=== PATIENT | female | born 1945 | race Caucasian/White ===

== ENCOUNTER 2023-08-15 15:23 | Outpatient (RCR) | payer MEDICARE, OTHER, SELFPAY | END 2023-09-18 15:48 | disposition home or self-care (01) | LOC: OT 15:23 | PROVIDERS: PCP Internal Medicine; Visit Provider Internal Medicine | DX: I89.0 Lymphedema, not elsewhere classified (principal) | CPT/HCPCS: 97140; 97166; 97535 ==

== ENCOUNTER 2025-06-03 07:56 | Outpatient (OUT) | payer MEDICARE, OTHER, SELFPAY ==
--- OUTSIDE RECORDS SUMMARY | 2025-02-27 18:07 | XMS_ITS ---
Author Organization [facility] in [place] Address [address] [place] [address] Care Team Providers Care Evaporative Cooler Installer Name Role Phone Riley Wallace DO Primary Care Provider Marcos Madsen [phone] Medications Medication SIG (Take, Route, Fr equency, Duration) Notes Start Date End Date Status oxyCODONE HCl 10 MG 1 tablet Orally tid for 30 days 02/27/2025 Active Encounters Encounter Location Date Provider Diagnosis [address] [address] 02/27/2025 Marcos Jeffers Plan Of Treatment Medication Medication Name Sig Start Date Stop Date Notes oxyCODONE HCl 10 MG 1 tablet Orally tid for 30 days 2024 Progress Notes * Alysia PÉREZ LDOB: 4 (79 yo F)Acc No.[id number]:02/27/2025 Patient: Alysia TREVINO :1945 A ge:79 Y S ex:Female Address:[address] [place] [address], [address] * Refills Start oxyCODONE HCl Tablet, 10 MG, Orally, 90 Tablet, 1 tablet, tid, 30 days, Refills=0 * true * Date: Generated for Loan florez/Alla/eTransmitting on: 0 06/03/2025 07:59 AM EDT
--- OUTSIDE RECORDS SUMMARY | 2025-03-17 04:00 | XMS_ITS ---
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 Medications Medication SIG (Take, Route, Frequency, Duration) Notes Start Date End Date Status Albuterol Sulfate HFA 108 (90 Base) MCG/ACT INHALE 2 PUFFS INTO THE LUNGS EVERY 4 HOURS NEEDED FOR 17 DAYS Inhalation for 25 Days Active oxyCODONE HCl 10 MG 1 tablet Orally tid for 30 days 02/27/2025 Active amLODIPine Besylate 10 MG Oral for 30 Days Active rOPINIRole HCl 0.5 MG Oral for 30 Days Active Sertraline HCl 100 MG Oral for 30 Days Active Ipratropium-Albuterol 0.5-2.5 (3) MG/3ML INHALE 1 VIAL VIA NEBULIZER 4 TIMES A DAY Inhalation for 8 Days Active metFORMIN HCl 1000 MG Oral for 30 Days Active Montelukast Sodium 10 MG Oral for 30 Days Active Gabapentin 400 MG TAKE 1 CAPSULE BY [facility] TWICE A DAY Oral for 30 Days Active Omeprazole 20 MG Oral for 30 Days Active busPIRone HCl 10 MG Oral for 30 Days Active Diclofenac Sodium 75 MG Oral for 30 Days Active Fluticasone Propionate 50 MCG/ACT Nasal for 90 Days Active Atorvastatin Calcium 10 MG TAKE 1 TABLET BY MOUTH EVERY DAY Oral for 90 Days Active Social History Tobacco Use: Social History Observation Description Date Details (start date - stop date) Former Smoker NA - NA Tobacco Control (Standard) Question Answer Notes Tobacco use: Former smoker How long has it been since y ou last smoked? Greater than 10 years Additional Findings: Tobacco non-user Ex -moderate cigarette smoker (10-19/day) Problems Problem Type SNOMED Code ICD Code Onset Dates Problem Status W/U Status Risk Notes Problem COPD - Chronic obstructive pulmonary disease (29084505) COPD (chronic obstructive pulmonary disease) (J44.9) Active confirmed Problem Obstructive sleep apnea syndrome (42819722) CYNTHIA (obstructive sleep apnea) (G47.33) Active confirmed Problem Restless legs (34385112) RLS (restless legs syndrome) (G25.81) Active confirmed Problem Diabetes mellitus type 2 (disorder) (84704628) DM2 (diabetes mellitus, type 2) (E11.9) Active confirmed Problem Atherosclerotic heart disease of [place] coronary artery without angina pectoris (252755745699085) Coronary artery calcification seen on CT scan (I25.10) Active confirmed Problem Muscle weakness (82399713) Generalized muscle weakness (M62.81) Active confirmed Problem Lung field abnormal (581491636) Abnormal CT scan of lung (R91.8) Active confirmed Problem Chronic respiratory failure (45997172) Chronic respiratory failure with hypoxia (J96.11) Active confirmed Problem Morbid obesity (765707690) Morbid obesity (E66.01) Active confirmed Problem Ex-tobacco user (finding) (188237155) History of tobacco abuse (Z87.891) Active confirmed Vital Signs Weight 231.0 lbs 03/17/2025 Height 63.0 in 03/17/2025 BMI 40.92 kg/m2 03/17/2025 Encounters Encounter Location Date Provider Diagnosis Pulmonary Medicine [address] [address] 03/17/2025 Chad Lyle COPD (chronic obstructive pulmonary disease) J44.9 ; Chronic respiratory failure with hypoxia J96.11 ; Abnormal CT scan of lung R91.8 ; CYNTHIA (obstructive sleep apnea) G47.33 ; Coronary artery calcification seen on CT scan I25.10 ; Generalized muscle weakness M62.81 ; RLS (restless legs syndrome) G25.81 ; Morbid obesity E66.01 ; armhole sewer (current) use of inhaled steroids Z79.51 and History of tobacco abuse Z87.891 Assessments Encounter Date Diagnosis (ICD Code) Assessment Notes Treatment Notes Treatment Clinical Notes Section Notes 03/17/2025 COPD (chronic obstructive pulmonary disease) (ICD-10 - J44.9) 03/17/2025 Chronic respiratory failure with hypoxia (ICD-10 - J96.11) 03/17/[address] scan of lung (ICD-10 - R91.8) 03/17/2025 CYNTHIA (obstructive sleep apnea) (ICD-10 - G47.33) 03/17/2025 Coronary artery calcification seen on CT scan (ICD-10 - I25.10) 03/17/2025 Generalized muscle weakness (ICD-10 - M62.81) 03/17/2025 RLS (restless legs syndrome) (ICD-10 - G25.81) 03/17/2025 Morbid obesity (ICD-10 - E66.01) 03/17/2025 MCC (current) use of inhaled steroids (ICD-10 - Z79.51) 03/17/2025 History of tobacco abuse (ICD-10 - Z87.891) Plan Of Treatment No Information Procedure Notes * Category Sub-Category Detail Notes PFT Data: 07/19/2023 - [facility] [place] -FEV1/FVC: 74%-FEV1: 81%-FVC: 75%-EEN61-12%: 51%-Bronchodilator response: None-RV: 197%-T%-DLCO: 58% Progress Notes * ANA MARIA Alysia LDOB: 4 (79 yo F)Acc No.[id number]:03/17/2025 UNLOCKED PROGRESS NOTE New Patient Patient: Alysia TREVINO Provider: Miroslava Lyle DO :1945 A ge:79 Y S ex:Female Date:03/17/2025 Address:[address] [place], [place] [phone] Pcp:Riley Wallace DO Subjective: * Chief Complaints: * 1 . 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 * ROS: G eneral/Constitutional: Fever or sweats d enies. C hange of appetite d enies. C hills d enies. W eight Change d enies. H EENT: Dry mouth d enies. S ore throat d enies. O ral Ulcers d enies. P ost Nasal Drip D enies. C ongestion D enies. H oarseness?Denies. C ardiovascular: Tachycardia d enies. E jolie D enies. C hest pain d enies. P alpitations d enies. R espiratory: Chest tightness d enies. P leurisy D enies. D yspnea d enies. C ough d enies. H emoptysis d enies. W heezing d enies.? G astrointestinal: Acid Reflux/GERD/Heartburn d enies. D ysphagia d enies. M usculoskeletal: Arthralgias/joint pain D enies. S kin: Easy bruising d enies. R liseth d enies. ? N eurologic: Seizures d enies. T remor d enies. H ematology: Abnormal Bleeding d enies. P sychiatric: Anxiety d enies. * Medical History: C OPD (chronic obstructive pulmonary disease), CYNTHIA (obstructive sleep apnea), RLS (restless legs syndrome), DM2 (diabetes mellitus, type 2), HTN (hypertension), OA (osteoarthritis), HLD (hyperlipidemia), GERD (gastroesophageal reflux disease), GEMMA (generalized anxiety disorder), Allergic rhinitis, Chronic respiratory failure with hypoxia, Coronary artery calcification seen on CT scan, Generalized muscle weakness, Macular degeneration, Compression fracture of L2 lumbar vertebra, Venous stasis dermatitis, Chronic venous insufficiency, Frequent falls, Abnormal CT scan of lung, Morbid obesity, History of tobacco abuse. * Social History: T obacco Use: T obacco Control (Standard) T obacco use: F ormer smoker H ow long has it been since you last smoked??Greater than 10 years A dditional Findings: Tobacco non-user E x-moderate cigarette smoker (10-19/day) LM: Additional Tobacco Questions N umber of Years Pt Smoked: 2 0 N umber of Packs per Day: 1 When did you stop smokin years ago. D rugs/Alcohol: D rugs H ave you used drugs other than those for medical reasons in the past 12 months? N o D oes the Patient have a History of Drug Abuse in the Past? N o Do you smoke marijuana?: Denies. * Medications: T aking Albuterol Sulfate HFA 108 (90 Base) MCG/ACT Aerosol Solution INHALE 2 PUFFS INTO THE LUNGS EVERY 4 HOURS NEEDED FOR 17 DAYS Inhalation , Taking amLODIPine Besylate 10 MG Tablet Oral , Taking Atorvastatin Calcium 10 MG Tablet TAKE 1 TABLET BY MOUTH EVERY DAY Oral , Taking busPIRone HCl 10 MG Tablet Oral , Taking Diclofenac Sodium 75 MG Tablet Delayed Release Oral , Taking Fluticasone Propionate 50 MCG/ACT Suspension Nasal , Taking Gabapentin 400 MG Capsule TAKE 1 CAPSULE BY MOUTH TWICE A DAY Oral , Taking Ipratropium-Albuterol 0.5-2.5 (3) MG/3ML Solution INHALE 1 VIAL VIA NEBULIZER 4 TIMES A DAY Inhalation , Taking metFORMIN HCl 1000 MG Tablet Oral , Taking Montelukast Sodium 10 MG Tablet Oral , Taking Omeprazole 20 MG Capsule Delayed Release Oral , Taking oxyCODONE HCl 10 MG Tablet 1 tablet Orally tid , Taking rOPINIRole HCl 0.5 MG Tablet Oral , Taking Sertraline HCl 100 MG Tablet Oral Objective: * Vitals: W t:231.0lbs, Ht:63.0in, BMI:40.92Index, Ht-cm: 160.02 cm, Wt-k.78 kg. * Examination: E xam: GENERAL APPEARANCE: A ppears stated age. Skin N ormal. Mouth P ink and moist. Oropharynx M allampati Class. Trachea M idline. Chest N ormal. Respiratory Normal M ovements, E ffort N ormal. Auscultation N ormal breath sounds. Cardiac R egular rate and rhythm. Gastrointestinal N ormal. Vascular N o edema. Musculoskeletal N ormal posture. Neurological F ocal, intact. Psychiatric A lert and oriented x3. Mentation/Cognition N ormal. Assessment: * Assessment: 1. C OPD (chronic obstructive pulmonary disease) - J44.9 (Primary) 2 . C hronic respiratory failure with hypoxia - J96.[address] scan of lung - R91.8 4 . O SA (obstructive sleep apnea) - G47.33 5 . C oronary artery calcification seen on CT scan - I25.10 6 . G eneralized muscle weakness - M62.81 7 . R LS (restless legs syndrome) - G25.81 8 . M orbid obesity - E66.01 9 . L aden term (current) use of inhaled steroids - Z79.51 10. H istory of tobacco abuse - Z87.891 Plan: * Treatment: * Procedures: P FT: Data: 07/19/2023 - [facility] [place] -FEV1/FVC: 74% -FEV1: 81% -FVC: 75% -SBW42-11%: 51% -Bronchodilator response: None -RV: 197% -T% -DLCO: 58%. * Preventive Medicine: COVID Vaccination: H as patient had COVID Vaccination? COVID Vaccination Y es 10/05/2021 Immunization Status: P neumovacc 1 . I nfluenza 1 12/06/2023. * * Electronic signature of Pat yLle DO on 06/03/2025 at 07:59 AM EDT Sign off status: Pending Visit Status: N /S N/C (No Show/No Charge) * Provider: Miroslava Lyle DO Date: 03/17/2025 Generated for Loan florez/Alla/eTransmitting on: 0 06/03/2025 07:59 AM EDT History and Physical Notes * Examination Category Sub-Category Detail Notes Category Not es Exam GENERAL APPEARANCE: Appears stated age Skin Normal Mouth [place] and moist Trachea Midline Chest Normal Respiratory Normal Movements, Ef fort Normal Auscultation Normal breath sounds Cardiac Regular rate and rhy thm Gastrointestinal Normal Vascular No edema Musculoskeletal Normal posture Neurological Focal, intact Psychiatric Alert and oriented x 3 Mentation/Cognition Normal Oropharynx Mallampati Class
--- OUTSIDE RECORDS SUMMARY | 2025-03-17 04:32 | XMS_ITS ---
Author Organization [facility] in [place] Address [address] [place] [address] Care Team Providers Care Mud Mill Tender Name Role Phone Riley Wallace DO Primary Care Provider Chad Goldsmith [phone] REASON FOR VISIT No Show Appointment Encounters Encounter Location Date Provider Diagnosis Pulmonary Medicine [place] [address] [place] [address] 03/17/2025 Chad Lyle Plan Of Treatment No Information Progress Notes * Alysia RODGERS LDOB: (79 yo F)Acc No.[id number]:03/17/2025 Patient: Kerwin TREVINOisabelle Veronica :1945 A ge:79 Y S ex:Female Address:[address] [place] [address], [address] * true * Date: Generated for Printi ng/Fanikoleg/eTransmitting on: 0 06/03/2025 07:59 AM EDT
--- OUTSIDE RECORDS SUMMARY | 2025-06-03 07:59 | XMS_ITS | Encounter Summary ---
Author Organization [employer] Sys [employer] Address [id number] [address] [place] [address] Care Team Providers Care Cork Painter And Grader Name Role Phone Riley Wallace Primary Care Provider [phone] Reason for Visit * Reason Onset Date Comments Med Refill 01/15/2023 Encounter Details Date Type Department Care Team (Late st Contact Info) Description 01/15/2023 Refill [facility] - Family Medicine [address] [place] [address] Babita Wilder MA Hyperlipidemia, unspecified hyperlipidemia type (Primary Dx) Social History Tobacco Use Types Packs/Day Years Used Date Smoking Tobacco: Former Cigarettes 1 20 Smokeless Tobacco: Never Alcohol Use Standard Drinks/Week Comments No 0 (1 standard drink = 0.6 oz pur e alcohol) AUDIT-C Answer Date Recorded Frequency of Alcohol Consumption Never 10/18/2018 Average Number of Drinks Not on file 018 Frequency of Binge Drinking Not on file 09/21 PHQ-2 Answer Date Recorded Total Score 0 01/18/2023 Childcare Answer Date Recorded Childcare Unknown 04/30/2019 Employment Answer Date Recorded Employment Unknown 04/30/2019 Purpose - Life Answer Date Recorded Purpose and direction in life Unknown Comments No Sex and Gender Information Value Date Recorded Sex Assigned at Not on file Legal Sex Female 11:30 AM EDT Gender Identity Not on file Sexual Orientation Not on file COVID-19 Exposure Response Date Recorded In the last month, have you been in contact with someone who was confirmed or suspected to have Coronavirus / COVID-19? No / Unsure 01/18/2023 4:14 PM EST documented as of this encounter Plan of Treatment Not on file documented as of this encounter Visit Diagnoses Diagnosis Hyperlipidemia, unspecified hyperlipidemia type- Primary documented in this encounter Additional Health Concerns Infection Onset Date Last Indicated Resolved Time COVID-19 Rule-Out 06/28/2023 06/28/2023 06/28/2023 10:24 AM EDT Assessment Noted Time PHQ-9 Depression Total Score: 1 12/06/19 3:53 PM EST documented as of this encounter Care Teams Cork Painter And Grader Relationship Specialty Start Date End Date Riley Wallace DO [address] [place] [address] PCP - General Internal Medicine 10/18/18 documented as of this encounter
--- OUTSIDE RECORDS SUMMARY | 2025-06-03 07:59 | XMS_ITS | Encounter Summary ---
Author Organization [employer] Sys tem Address [id number] [address] [place] [address] Care Team Providers Care Senior Technical Manager Name Role Phone Riley Wallace Primary Care Provider Encounter Details Date Type Department Care Team (Late st Contact Info) Description 10/17/2022 Telephone [facility] - Family Medicine [address] [place] [phone] Yael Anaya CMA Social History Tobacco Use Types Packs/Day Years Used Date Smoking Tobacco: Former Cigarettes 1 20 Smokeless Tobacco: Never Alcohol Use Standard Drinks/Week Comments No 0 (1 standard drink = 0.6 oz pur e alcohol) AUDIT-C Answer Date Recorded Frequency of Alcohol Consumption Never 10/18/2018 Average Number of Drinks Not on file 018 Frequency of Binge Drinking Not on file 09/21 Childcare Answer Date Recorded Childcare Unknown 04/30/2019 Employment Answer Date Recorded Employment Unknown 04/30/2019 Purpose - Life Answer Date Recorded Purpose and direction in life Unknown Comments Unknown Sex and Gender Information Value Date Recorded Sex Assigned at Not on file Legal Sex Female 11:30 AM EDT Gender Identity Not on file Sexual Orientation Not on file COVID-19 Exposure Response Date Recorded In the last month, have you been in contact with someone who was confirmed or suspected to have Coronavirus / COVID-19? No / Unsure 09/18/2022 4:13 PM EDT documented as of this encounter Miscellaneous Notes * Telephone Encounter - Yael Anaya CMA - 10/17/2022 10:34 AM EST Dianna from Home care called to see if patient has dx of diabetes. Needs faxed to [phone] documented in this encounter Plan of Treatment Not on file documented as of this encounter Visit Diagnoses Not on filedocumented in this encounter Additional Health Concerns Infection Onset Date Last Indicated Resolved Time COVID-19 Rule-Out 06/28/2023 06/28/2023 06/28/2023 10:24 AM EDT documented as of this encounter Care Teams Senior Technical Manager Relationship Specialty Start Date End Date Riley Wallace DO [address] [place] [address] PCP - General Internal Medicine 10/18/18 documented as of this encounter
--- OUTSIDE RECORDS SUMMARY | 2025-06-03 07:59 | XMS_ITS | Encounter Summary ---
Author Organization [facility] Sys tem Address [id number] [address] [place] [address] Care Team Providers Care Hand Rug Cleaner Name Role Phone Riley Wallace DO Primary Care Provider [phone] Encounter Details Date Type Department Care Team (Late st Contact Info) Description 11/16/2022 Orders Only [facility] - Family Medicine [address] [place] [address] Riley Wallace DO [address] [place] [address] Acute bronchitis, unspecified organism (Primary Dx) Social History Tobacco Use Types [...] have Coronavirus / COVID-19? No / Unsure 11/08/2022 3:00 PM EST documented as of this encounter Plan of Treatment Not on file documented as of this encounter Visit Diagnoses Diagnosis Acute bronchitis, unspecified organism- Primary documented in this encounter Additional Health Concerns Infection Onset Date Last Indicated Resolved Time COVID-19 Rule-Out 06/28/2023 06/28/2023 06/28/2023 10:24 AM EDT documented as of this encounter Care Teams Hand Rug Cleaner Relationship Specialty Start Date End Date Riley Wallace DO [facility] [place] [address] PCP - General Internal Medicine 10/18/18 documented as of this encounter
--- OUTSIDE RECORDS SUMMARY | 2025-06-03 07:59 | XMS_ITS | Encounter Summary ---
Author Organization [employer] [facility] [employer] Address [id number] [address] [place] [address] Care Team Providers Care Club Steward Name Role Phone Riley Wallace Primary Care Provider [phone] Reason for Visit * Reason Comments Med Refill Encounter Details Date Type Department Care Team (Late st Contact Info) Description 10/13/2022 Refill [facility] - Family Medicine [address] [place] [address] Iliana Crum, SUMMER-SUGAR BOILER [address] [facility] [address] [address] [place] [address] Essential hypertension Social History Tobacco Use Types Packs/Day Years [...] PM EDT documented as of this encounter Plan of Treatment Not on file documented as of this encounter Visit Diagnoses Diagnosis Essential hypertension Unspecified essential hypertension documented in this encounter Additional Health Concerns Infection Onset Date Last Indicated Resolved Time COVID-19 Rule-Out 06/28/2023 06/28/2023 06/28/2023 10:24 AM EDT documented as of this encounter Care Teams Club Steward Relationship Specialty Start Date End Date Riley Wallace DO [address] [place] [address] PCP - General Internal Medicine 10/18/18 documented as of this encounter
--- OUTSIDE RECORDS SUMMARY | 2025-06-03 07:59 | XMS_ITS | Encounter Summary ---
Author Organization [employer] Address [id number] [address] [place] [address] Care Team Providers Care Rn Peritoneal Dialysis Name Role Phone Riley Wallace Primary Care Provider [phone] Encounter Details Date Type Department Care Team (Late st Contact Info) Description 09/25/2022 Telephone [facility] - Family Medicine [address] [place] [address] Fiona Milligan CMA Social History Tobacco Use Types Packs/Day [...] encounter Miscellaneous Notes * Telephone Encounter - Fiona Milligan CMA - 09/25/2022 3:38 PM EST Patient called and said she needs an order sent to [employer] for her Aldair Hose with the zipper in them documented in this encounter Plan of Treatment Not on file documented as of this encounter Visit Diagnoses Not on filedocumented in this encounter Additional Health Concerns Infection Onset Date Last Indicated Resolved Time COVID-19 Rule-Out 06/28/2023 06/28/2023 06/28/2023 10:24 AM EDT documented as of this encounter Care Teams Rn Peritoneal Dialysis Relationship Specialty Start Date End Date Riley Wallace DO [address] [place] [address] PCP - General Internal Medicine 10/18/18 documented as of this encounter
--- OUTSIDE RECORDS SUMMARY | 2025-06-03 07:59 | XMS_ITS | Encounter Summary ---
Author Organization [facility] Address [id number] [address] [place] [address] Care Team Providers Care Raw Stock Machine Feeder Name Role Phone Riley Wallace Primary Care Provider [phone] Encounter Details Date Type Department Care Team (Late st Contact Info) Description 10/19/2022 Telephone [facility] - [facility] [address] [place] [address] Indu Poole MA Social History Tobacco Use Types Packs/Day Years [...] on file Sexual Orientation Not on file documented as of this encounter Miscellaneous Notes * Telephone Encounter - Indu Poole MA - 10/19/2022 5:44 PM EST Kathi from home health called needing clarification on what needs done with her leg. Avelina boot, compression, or rx? * Telephone Encounter - Riley Wallace DO - 10/19/2022 5:44 PM EST Christopher correia would be my preference. * Telephone Encounter - Indu Poole MA - 10/19/2022 5:44 PM EST Left on voicemail. documented in this encounter Plan of Treatment Not on file documented as of this encounter Visit Diagnoses Not on filedocumented in this encounter Additional Health Concerns Infection Onset Date Last Indicated Resolved Time COVID-19 Rule-Out 06/28/2023 06/28/2023 06/28/2023 10:24 AM EDT documented as of this encounter Care Teams Raw Stock Machine Feeder Relationship Specialty Start Date End Date Riley Wallace DO [address] [place] [address] PCP - General Internal Medicine 10/18/18 documented as of this encounter
--- OUTSIDE RECORDS SUMMARY | 2025-06-03 07:59 | XMS_ITS | Encounter Summary ---
Author Organization [employer] Sys tem Address [facility] [id number] [address] [place] [address] Care Team Providers Care Wireless Store Manager Name Role Phone Riley aWllace Primary Care Provider [phone] Encounter Details Date Type Department Care Team (Late st Contact Info) Description 10/16/2022 Telephone [facility] - Family Medicine [address] [place] [phone] Indu Poole MA Social History Tobacco Use [...] Telephone Encounter - Indu Poole MA - 10/16/2022 5:05 PM EST Kathi called to clarify what needs done with her. Avelina Boot? Stockings? Also, she wanted to know ifyou wanted wound care? * Telephone Encounter - Riley Wallace DO - 10/16/2022 5:05 PM EST Who is Kathi? * Telephone Encounter - Indu Poole MA - 10/16/2022 5:05 PM EST Kathi from [facility] documented in this encounter Plan of Treatment Not on file documented as of this encounter Visit Diagnoses Not on filedocumented in this encounter Additional Health Concerns Infection Onset Date Last Indicated Resolved Time COVID-19 Rule-Out 06/28/2023 06/28/2023 06/28/2023 10:24 AM EDT documented as of this encounter Care Teams Wireless Store Manager Relationship Specialty Start Date End Date Riley Wallace DO [address] [place] [address] PCP - General Internal Medicine 10/18/18 documented as of this encounter
--- OUTSIDE RECORDS SUMMARY | 2025-06-03 07:59 | XMS_ITS | Encounter Summary ---
Author Organization [employer] Sys tem Address [facility] [id number] [address] [place] [address] Care Team Providers Care Data Entry Email Processor Name Role Phone Riley Wallcae Primary Care Provider [phone] Reason for Visit * Reason Onset Date Comments Med Refill 09/25/2022 Encounter Details Date Type Department Care Team (Late st Contact Info) Description 09/25/2022 Refill [facility] - Family Medicine [address] [place] [address] Fiona Milligan CMA Essential (primary) hypertension Social History Tobacco Use Types Packs/Day [...] of this encounter Visit Diagnoses Diagnosis Essential (primary) hypertension Unspecified essential hypertension documented in this encounter Additional Health Concerns Infection Onset Date Last Indicated Resolved Time COVID-19 Rule-Out 06/28/2023 06/28/2023 06/28/2023 10:24 AM EDT documented as of this encounter Care Teams Data Entry Email Processor Relationship Specialty Start Date End Date Riley Wallace DO [address] [place] [address] PCP - General Internal Medicine 10/18/18 documented as of this encounter
--- OUTSIDE RECORDS SUMMARY | 2025-06-03 07:59 | XMS_ITS | Encounter Summary ---
Author Organization [facility] tem Address [facility] [id number] [address] [place] [address] Care Team Providers Care Grocery Sacker Name Role Phone Riley Wallace DO Primary Care Provider [phone] Encounter Details Date Type Department Care Team (Late st Contact Info) Description 06/04/2023 Orders Only [facility] - Family Medicine [address] [place] [address] Riley Wallace DO [address] [place] [address] Acute exacerbation of chronic obstructive pulmonary disease (COPD) ([facility]) (Primary Dx) Social History Tobacco Use Types [...] PHQ-2 Answer Date Recorded Total Score 0 05/28/2023 Childcare Answer Date Recorded Childcare Unknown 04/30/2019 Employment Answer Date Recorded Employment Unknown 04/30/2019 Purpose - Life Answer Date Recorded Purpose and direction in life Unknown Comments No Sex and Gender Information Value Date Recorded Sex Assigned at Not on file Legal Sex Female 11:30 AM EDT Gender Identity Not on file Sexual Orientation Not on file documented as of this encounter Plan of Treatment Not on file documented as of this encounter Visit Diagnoses Diagnosis Acute exacerbation of chronic obstructive pulmonary disease (COPD) ([facility])- Primary Obstructive chronic bronchitis with exacerbation documented in this encounter Additional Health Concerns Infection Onset Date Last Indicated Resolved Time COVID-19 Rule-Out 06/28/2023 06/28/2023 06/28/2023 10:24 AM EDT Assessment Noted Time PHQ-9 Depression Total Score: 0 05/28/20 4:01 PM EDT documented as of this encounter Care Teams Grocery Sacker Relationship Specialty Start Date End Date Riley Wallace DO [address] [place] [id number] PCP - General Internal Medicine 10/18/18 documented as of this encounter
--- OUTSIDE RECORDS SUMMARY | 2025-06-03 07:59 | XMS_ITS | Encounter Summary ---
Author Organization [facility] Address [address] [place] [address] Care Team Providers Care Supervisor Mirror Fabrication Name Role Phone Riley Wallace MD Primary Care Provider [phone] Encounter Details Date Type Department Care Team (Late st Contact Info) Description 05/25/2025 Abstract [facility] [address] [place] [phone] Riley Wallace MD [address] [place] [address] Social History Tobacco Use Types Packs/Day Years Used Date Smoking Tobacco: Former Cigarettes Smokeless Tobacco: Never Alcohol Use Standard Drinks/Week Comments Not Currently 0 (1 standard drink = 0.6 oz pur e alcohol) Comments Unknown Sex and Gender Information Value Date Recorded Sex Assigned at Not on file Legal Sex Female 8:13 PM EDT Gender Identity Not on file Sexual Orientation Not on file documented as of this encounter Plan of Treatment Not on file documented as of this encounter Visit Diagnoses Not on filedocumented in this encounter Care Teams Supervisor Mirror Fabrication Relationship Specialty Start Date End Date Riley Wallace MD PCP - General Internal Medicine 12/04/24 documented as of this encounter
--- OUTSIDE RECORDS SUMMARY | 2025-06-03 07:59 | XMS_ITS | Encounter Summary ---
Author Organization [employer] Sys tem Address [facility] [id number] [address] [place] [address] Care Team Providers Care Veterinary Medical Officer Name Role Phone Riley Wallace Primary Care Provider [phone] Reason for Visit * Reason Onset Date Comments Med Refill 08/21/2022 Encounter Details Date Type Department Care Team (Late st Contact Info) Description 08/21/2022 Refill [facility] - Family Medicine [address] [place] [address] Fiona Milligan CMA Bronchitis with bronchospasm (Primary Dx) Social History Tobacco Use Types [...] as of this encounter Visit Diagnoses Diagnosis Bronchitis with bronchospasm- Primary Acute bronchitis documented in this encounter Additional Health Concerns Infection Onset Date Last Indicated Resolved Time COVID-19 Rule-Out 06/28/2023 06/28/2023 06/28/2023 10:24 AM EDT documented as of this encounter Care Teams Veterinary Medical Officer Relationship Specialty Start Date End Date Riley Wallace DO [address] [place] [id number] PCP - General Internal Medicine 10/18/18 documented as of this encounter
--- OUTSIDE RECORDS SUMMARY | 2025-06-03 07:59 | XMS_ITS | Encounter Summary ---
Author Organization [email or web address] Sys tem Address [facility] [id number] [address] [place] [address] Care Team Providers Care Roustabout Crew Name Role Phone Riley Wallace Primary Care Provider [phone] Encounter Details Date Type Department Care Team (Late st Contact Info) Description 10/07/2024 Telephone [facility] - Family Medicine [address] [place] [address] Brianna Sheldon CMA Social History Tobacco Use Types Packs/Day [...] PHQ-2 Answer Date Recorded Total Score 0 10/06/2024 Childcare Answer Date Recorded Childcare Unknown 04/30/2019 Employment Answer Date Recorded Employment Unknown 04/30/2019 Hunger Screening Answer Date Recorded Within the past 12 months we worried whether our food would run out before we got money to buy more. Never True 10/06/2024 Within the past 12 months th e food we bought just didn't last and we didn't have money to get more. Never True 10/06/2024 Purpose - Life Answer Date Recorded Purpose and direction in life Unknown Comments No Sex and Gender Information Value Date Recorded Sex Assigned at Not on file Legal Sex Female 11:30 AM EDT Gender Identity Not on file Sexual Orientation Not on file documented as of this encounter Miscellaneous Notes * Telephone Encounter - Brianna Sheldon CMA - 10/07/2024 11:30 AM EST ----- Message from Dr. Riley Wallace DO sent at 10/07/2024 10:38 AM EST ----- Reviewed. The measure for infection, including the white blood cell count, and the measure of inflammation, the ESR, were both normal. There is no indication of a actual cellulitis that requires antibiotics. In addition, her blood sugar looks great, and her kidney and liver function are normal. Objectively, I do not see any reason that she needs antibiotics. Does she need a note to Dr. Hope? documented in this encounter Plan of Treatment Not on file documented as of this encounter Visit Diagnoses Not on filedocumented in this encounter Additional Health Concerns Assessment Noted Time PHQ-9 Depression Total Score: 0 10/06/20 24 4:42 PM EST documented as of this encounter Care Teams Roustabout Crew Relationship Specialty Start Date End Date Riley Wallace DO [address] [place] [address] PCP - General Internal Medicine 10/18/18 documented as of this encounter
--- OUTSIDE RECORDS SUMMARY | 2025-06-03 07:59 | XMS_ITS | Encounter Summary ---
Author Organization [employer] Sys tem Address [facility] [id number] [address] [place] [address] Care Team Providers Care Director Sales And Marketing Name Role Phone Riley Wallace DO Primary Care Provider [phone] Reason for Visit * Reason Comments Med Refill Encounter Details Date Type Department Care Team (Late st Contact Info) Description 11/09/2022 Refill [facility] - Family Medicine [address] [place] [address] Riley Wallace DO [address] [place] [address] Bronchitis with bronchospasm Social History Tobacco Use Types Packs/Day Years [...] this encounter Visit Diagnoses Diagnosis Bronchitis with bronchospasm Acute bronchitis documented in this encounter Additional Health Concerns Infection Onset Date Last Indicated Resolved Time COVID-19 Rule-Out 06/28/2023 06/28/2023 06/28/2023 10:24 AM EDT documented as of this encounter Care Teams Director Sales And Marketing Relationship Specialty Start Date End Date Riley Wallace DO [address] [place] [address] PCP - General Internal Medicine 10/18/18 documented as of this encounter
--- OUTSIDE RECORDS SUMMARY | 2025-06-03 07:59 | XMS_ITS | Encounter Summary ---
Author Organization [employer] Sys tem Address [facility] [id number] [address] [place] [address] Care Team Providers Care Business Process Analyst Name Role Phone Riley Wallace DO Primary Care Provider [phone] Reason for Visit * Reason Comments Med Refill Encounter Details Date Type Department Care Team (Late st Contact Info) Description 08/09/2022 Refill [facility] - Family Medicine [address] [place] [address] Riley Wallace DO [address] [place] [address] Unspecified osteoarthritis, unspecified site Social History Tobacco Use Types Packs/Day Years [...] as of this encounter Visit Diagnoses Diagnosis Unspecified osteoarthritis, unspecified site documented in this encounter Additional Health Concerns Infection Onset Date Last Indicated Resolved Time COVID-19 Rule-Out 06/28/2023 06/28/2023 06/28/2023 10:24 AM EDT documented as of this encounter Care Teams Business Process Analyst Relationship Specialty Start Date End Date Riley Wallace DO [address] [place] [address] PCP - General Internal Medicine 10/18/18 documented as of this encounter
--- OUTSIDE RECORDS SUMMARY | 2025-06-03 07:59 | XMS_ITS | Encounter Summary ---
Author Organization [email or web address] [facility] tem Address [facility] [id number] [address] [place] [address] Care Team Providers Care Karate Instructor Name Role Phone Riley Wallace Primary Care Provider [phone] Encounter Details Date Type Department Care Team (Late st Contact Info) Description 05/28/2023 Telephone [facility] - Family Medicine [address] [place] [phone] Fiona Milligan CMA Social History Tobacco Use [...] Telephone Encounter - Fiona Milligan CMA - 05/28/2023 10:50 AM EDT Shey called to let us know that she had a visit with Alysia today. She is looking good wound gallegos. She is not wearing her compression stockings because she can't put them on. She was wheezing quitea bit. She told Shey that she was doing her breathing treatment but couldn't tell her when her last one was. She wanted to set her up for one and she said no she would do it when Shey left. Shey also asked her about her blood sugars. She only does it once a week when her daughter is there if she remembers. Shey wanted to do it today during her visit and she said no . Shey talked to her about using Fátima or Dexcom and she said she was not interested. Shey said to call her backif there is anything more she can do documented in this encounter Plan of Treatment Not on file documented as of this encounter Visit Diagnoses Not on filedocumented in this encounter Additional Health Concerns Infection Onset Date Last Indicated Resolved Time COVID-19 Rule-Out 06/28/2023 06/28/2023 06/28/2023 10:24 AM EDT Assessment Noted Time PHQ-9 Depression Total Score: 0 05/28/20 23 4:01 PM EDT documented as of this encounter Care Teams Karate Instructor Relationship Specialty Start Date End Date Riley Wallace DO [address] [place] [address] PCP - General Internal Medicine 10/18/18 documented as of this encounter
--- OUTSIDE RECORDS SUMMARY | 2025-06-03 07:59 | XMS_ITS | Encounter Summary ---
Author Organization [facility] tem Address [id number] [address] [place] [address] Care Team Providers Care Car Customizer Name Role Phone Riley Wallace Primary Care Provider [phone] Encounter Details Date Type Department Care Team (Late st Contact Info) Description 01/23/2023 Telephone [facility] - Family Medicine [address] [place] [phone] Nellie Cooper CMA Social History Tobacco Use Types Packs/Day [...] PM EST documented as of this encounter Miscellaneous Notes * Telephone Encounter - Nellie Cooper CMA - 01/23/2023 2:06 PM EST Pt called and said that she was recently diagnosed with bronchitis and has been using her neighborsnebulizer and it has been very helpful. She would like to get her own to use in the home, Can we door will pt need an appt? * Telephone Encounter - Riley Wallace DO - 01/23/2023 2:06 PM EST She needs to go get the PFT done, which was ordered over a month ago. After that, I will see her and we can discuss treatment options. * Telephone Encounter - Nellie Cooper CMA - 01/23/2023 2:06 PM EST I called pt and asked why she had not gotten done. She stated that the hospital told her she had tostep up into some thing, and pt stated she is wheel chair bound. I told her I would try to see whatwe could figure out. I called over to [facility], spoke to Norman in respiratory apartment, and he stated that there is nothing like that required for A PFT, so I am unsure who she spoke to, but I let pt know she needs to call hospital, let them know she is wheelchair bound, and get it setup. Gave pt phone number and to tell them that respiratory would accommodate her needs. * Telephone Encounter - Ese Rankin CMA - 01/23/2023 2:06 PM EST Pt states she is not going to do PFT that she feels her body can not do the test. * Telephone Encounter - Riley Wallace DO - 01/23/2023 2:06 PM EST She still needs an appointment. If she can no longer keep appointments, [facility] * Telephone Encounter - Lillie Delgadillo - 01/23/2023 2:06 PM EST Left message to call back documented in this encounter Plan of Treatment Not on file documented as of this encounter Visit Diagnoses Not on filedocumented in this encounter Additional Health Concerns Infection Onset Date Last Indicated Resolved Time COVID-19 Rule-Out 06/28/2023 06/28/2023 06/28/2023 10:24 AM EDT Assessment Noted Time PHQ-9 Depression Total Score: 0 01/19/20 23 4:26 PM EST documented as of this encounter Care Teams Car Customizer Relationship Specialty Start Date End Date Riley Wallace DO [address] [place] [address] PCP - General Internal Medicine 10/18/18 documented as of this encounter
--- OUTSIDE RECORDS SUMMARY | 2025-06-03 07:59 | XMS_ITS | Encounter Summary ---
Author Organization [facility] [facility] tem Address [facility] [id number] [address] [place] [address] Care Team Providers Care Concrete Stone Finisher Name Role Phone Riley Wallace DO Primary Care Provider [phone] Reason for Visit * Reason Comments Med Refill Encounter Details Date Type Department Care Team (Late st Contact Info) Description 12/01/2022 Refill [facility] - Family Medicine [address] [place] [address] Riley Wallace DO [address] [place] [address] Non-seasonal allergic rhinitis, unspecified trigger Social History Tobacco Use Types Packs/Day Years [...] as of this encounter Visit Diagnoses Diagnosis Non-seasonal allergic rhinitis, unspecified trigger documented in this encounter Additional Health Concerns Infection Onset Date Last Indicated Resolved Time COVID-19 Rule-Out 06/28/2023 06/28/2023 06/28/2023 10:24 AM EDT documented as of this encounter Care Teams Concrete Stone Finisher Relationship Specialty Start Date End Date Riley Wallace DO [address] [place] [id number] PCP - General Internal Medicine 10/18/18 documented as of this encounter
--- OUTSIDE RECORDS SUMMARY | 2025-06-03 07:59 | XMS_ITS | Encounter Summary ---
Author Organization [employer] Sys tem Address [facility] [id number] [address] [place] [address] Care Team Providers Care Hotel Clerk Name Role Phone Riley Wallace Primary Care Provider [phone] Encounter Details Date Type Department Care Team (Late st Contact Info) Description 04/06/2025 Telephone [facility] - Family Medicine [address] [place] [address] Tiffani Lau CMA Social History Tobacco Use Types Packs/Day [...] PHQ-2 Answer Date Recorded Total Score 0 03/12/2025 Childcare Answer Date Recorded Childcare Unknown 04/30/2019 Employment Answer Date Recorded Employment Unknown 04/30/2019 Hunger Screening Answer Date Recorded Within the past 12 months we worried whether our food would run out before we got money to buy more. Never True 03/12/2025 Within the past 12 months th e food we bought just didn't last and we didn't have money to get more. Never True 03/12/2025 Purpose - Life Answer Date Recorded Purpose and direction in life Unknown Comments No Sex and Gender Information Value Date Recorded Sex Assigned at Not on file Legal Sex Female 11:30 AM EDT Gender Identity Not on file Sexual Orientation Not on file documented as of this encounter Miscellaneous Notes * Telephone Encounter - Tiffani Lau CMA - 04/06/2025 10:47 AM EDT Pt's daughter called needing a DNR signed. Pt is in assisted living at [facility]. Daughter stated pt was just in around 3 weeks ago. Thank you. Please advise. * Telephone Encounter - Riley Wallace DO - 04/06/2025 10:47 AM EDT Message noted. The signed DNR form is in the folder documented in this encounter Plan of Treatment Not on file documented as of this encounter Visit Diagnoses Not on filedocumented in this encounter Additional Health Concerns Assessment Noted Time PHQ-9 Depression Total Score: 0 03/12/20 25 4:16 PM EDT documented as of this encounter Care Teams Hotel Clerk Relationship Specialty Start Date End Date Riley Wallace DO [address] [place] [address] PCP - General Internal Medicine 10/18/18 documented as of this encounter
--- OUTSIDE RECORDS SUMMARY | 2025-06-03 07:59 | XMS_ITS | Encounter Summary ---
Author Organization [facility] Sys tem Address [facility] [id number] [address] [place] [address] Care Team Providers Care Engineer Internship Name Role Phone Riley Wallace DO Primary Care Provider [phone] Encounter Details Date Type Department Care Team (Late st Contact Info) Description 11/17/2024 Orders Only [facility] - Family Medicine [address] [place] [address] Riley Wallace DO [address] [place] [address] Social History Tobacco Use Types Packs/Day Years [...] documented as of this encounter Care Teams Engineer Internship Relationship Specialty Start Date End Date Riley Wallace DO [address] [place] [address] PCP - General Internal Medicine 10/18/18 documented as of this encounter
--- OUTSIDE RECORDS SUMMARY | 2025-06-03 07:59 | XMS_ITS | Encounter Summary ---
Author Organization [employer] Sys tem Address [facility] [id number] [address] [place] [address] Care Team Providers Care Pilot Steam Yacht Name Role Phone Riley Wallace Primary Care Provider [phone] Encounter Details Date Type Department Care Team (Late st Contact Info) Description 05/16/2024 Telephone [facility] - Family Medicine [address] [place] [address] Brianna Sheldon CMA Social History Tobacco Use [...] PHQ-2 Answer Date Recorded Total Score 0 05/14/2024 Childcare Answer Date Recorded Childcare Unknown 04/30/2019 Employment Answer Date Recorded Employment Unknown 04/30/2019 Hunger Screening Answer Date Recorded Within the past 12 months we worried whether our food would run out before we got money to buy more. Never True 05/14/2024 Within the past 12 months th e food we bought just didn't last and we didn't have money to get more. Never True 05/14/2024 Purpose - Life Answer Date Recorded Purpose and direction in life Unknown Comments No Sex and Gender Information Value Date Recorded Sex Assigned at Not on file Legal Sex Female 11:30 AM EDT Gender Identity Not on file Sexual Orientation Not on file documented as of this encounter Miscellaneous Notes * Telephone Encounter - Brianna Sheldon CMA - 05/16/2024 9:19 AM EDT ----- Message from Dr. Riley Wallace DO sent at 05/15/2024 9:29 PM EDT ----- Reviewed. Her lab work shows normal electrolytes, normal liver function and normal kidney function. The A1c is slightly worse at 6.4%, but still acceptable. No changes in medications at this time. documented in this encounter Plan of Treatment Not on file documented as of this encounter Visit Diagnoses Not on filedocumented in this encounter Additional Health Concerns Assessment Noted Time PHQ-9 Depression Total Score: 0 05/14/20 24 4:46 PM EDT documented as of this encounter Care Teams Pilot Steam Yacht Relationship Specialty Start Date End Date Riley Wallace DO [address] [place] [address] PCP - General Internal Medicine 10/18/18 documented as of this encounter
--- OUTSIDE RECORDS SUMMARY | 2025-06-03 07:59 | XMS_ITS | Encounter Summary ---
Author Organization [employer] Sys tem Address [facility] [id number] [address] [place] [address] Care Team Providers Care Ship Fitter Name Role Phone Riley Wallace Primary Care Provider [phone] Encounter Details Date Type Department Care Team (Late st Contact Info) Description 10/09/2024 Telephone [facility] - Family Medicine [address] [place] [phone] Brianna Sheldon CMA Social History Tobacco Use [...] Telephone Encounter - Brianna Sheldon CMA - 10/09/2024 9:55 AM EST Message from Dr. Riley Wallace DO sent [...] documented as of this encounter Care Teams Ship Fitter Relationship Specialty Start Date End Date Riley Wallace DO [address] [place] [address] PCP - General Internal Medicine 10/18/18 documented as of this encounter
--- OUTSIDE RECORDS SUMMARY | 2025-06-03 07:59 | XMS_ITS | Encounter Summary ---
Author Organization [facility] [facility] Address [id number] [address] [place] [address] Care Team Providers Care Paper Goods Machine Set Up Operator Name Role Phone Riley Wallace DO Primary Care Provider [phone] Reason for Visit * Reason Comments Med Refill Encounter Details Date Type Department Care Team (Late st Contact Info) Description 02/03/2023 Refill [facility] - [facility] Medicine [address] [place] [address] Riley Wallace DO [address] [place] [address] Unspecified osteoarthritis, unspecified site Social History Tobacco [...] Time PHQ-9 Depression Total Score: 0 01/19/20 4:26 PM EST documented as of this encounter Care Teams Paper Goods Machine Set Up Operator Relationship Specialty Start Date End Date Riley Wallace DO [address] [place] [address] PCP - General Internal Medicine 10/18/18 documented as of this encounter
--- OUTSIDE RECORDS SUMMARY | 2025-06-03 07:59 | XMS_ITS | Encounter Summary ---
Author Organization [employer] [facility] [employer] Address [id number] [address] [place] [address] Care Team Providers Care Crew Truck Driver Name Role Phone Riley Wallace DO Primary Care Provider [phone] Reason for Visit * Reason Comments Med Refill Encounter Details Date Type Department Care Team (Late st Contact Info) Description 03/11/2025 Refill [facility] - Family Medicine [address] [place] [address] Riley Wallace DO [address] [place] [address] Unspecified osteoarthritis, unspecified site Social History Tobacco [...] documented in this encounter Additional Health Concerns Assessment Noted Time PHQ-9 Depression Total Score: 0 10/06/20 24 4:42 PM EST documented as of this encounter Care Teams Crew Truck Driver Relationship Specialty Start Date End Date Riley Wallace DO [address] [place] [address] PCP - General Internal Medicine 10/18/18 documented as of this encounter
--- OUTSIDE RECORDS SUMMARY | 2025-06-03 07:59 | XMS_ITS | Encounter Summary ---
Author Organization [employer] [facility] Address [id number] [address] [place] [address] Care Team Providers Care Landfill Gas Collection System Operator Name Role Phone Riley Wallace DO Primary Care Provider [phone] Reason for Visit * Reason Comments Med Refill Encounter Details Date Type Department Care Team (Late st Contact Info) Description 04/26/2025 Refill [facility] - Family Medicine [address] [place] [address] Riley Wallace DO [address] [place] [address] Allergic rhinitis, unspecified; Other specified anxiety disorders Social History Tobacco Use Types Packs/Day Years Used Date Smoking Tobacco: Former Cigarettes 1 20 Smokeless Tobacco: Never Alcohol Use Standard Drinks/Week Comments No 0 (1 standard drink = 0.6 oz pur e alcohol) [facility] Utilities Answer Date Recorded In the past 12 months has [employer], gas, oil, or water [employer] threatened to shut off services in your home? No 04/22/2025 AUDIT-C Answer Date Recorded Frequency of Alcohol Consumption Never 10/18/2018 Average Number of Drinks Not on file 018 Frequency of Binge Drinking Not on file 09/21 Overall Financial Resource Strain (CARDIA) Answe r Date Recorded How hard is it for you to pa y for the very basics like food, housing, medical care, and heating? Not hard at all 04/22/2025 PHQ-2 Answer Date Recorded Total Score 0 04/22/2025 PRAPARE - Transportation Answer Date Re corded In the past 12 months, has l ack of transportation kept you from medical appointments or from getting medications? No 02/2025 In the past 12 months, has l ack of transportation kept you from meetings, work, or from getting things needed for daily living? No 04/22/2025 Housing Instability Answer Date Recorde d Are you worried or concerned that in the next two months you may not have stable housing that you own, rent or stay in as a part of a household? No 04/22/2025 Childcare Answer Date Recorded Childcare Unknown 04/30/2019 Employment Answer Date Recorded Employment Unknown 04/30/2019 Hunger Screening Answer Date Recorded Within the past 12 months we worried whether our food would run out before we got money to buy more. Never True 04/23/2025 Within the past 12 months th e food we bought just didn't last and we didn't have money to get more. Never True 04/23/2025 Purpose - Life Answer Date Recorded Purpose and direction in life Unknown Comments No Sex and Gender Information Value Date Recorded Sex Assigned at Not on file Legal Sex Female 11:30 AM EDT Gender Identity Not on file Sexual Orientation Not on file documented as of this encounter Plan of Treatment Not on file documented as of this encounter Goals Goal Patient Goal Type Associated Problems Recent Progress Patient-Stated? Author Skilled Care and then transition to LTC General Yes Jesi Ferraro, RN Note: Evaluation of progress towards goal: Patient has been at [facility] for what she believes to be 1-2 weeks. She states that she is requiring more assistance with ambulation than what can be provided at that level of care. Patient states she knows she will need to go into long term care administrator care but would like to try rehab again somewhere else before LTC. DaughterBridget states they have been discussing this option with [facility]. Ese at [facility] states that they have assisted them to file for Medicaid. documented as of this encounter Visit Diagnoses Diagnosis Allergic rhinitis, unspecified Other specified anxiety disorders documented in this encounter Additional Health Concerns Assessment Noted Time PHQ-9 Depression Total Score: 0 04/22/20 25 11:50 AM EDT documented as of this encounter Care Teams Landfill Gas Collection System Operator Relationship Specialty Start Date End Date Riley Wallace DO [address] [place] [address] PCP - General Internal Medicine 10/18/18 documented as of this encounter
--- OUTSIDE RECORDS SUMMARY | 2025-06-03 07:59 | XMS_ITS | Encounter Summary ---
Author Organization [employer] Address [id number] [address] [place] [address] Care Team Providers Care Customer Service Assistant Name Role Phone Riley Wallace Primary Care Provider [phone] Encounter Details Date Type Department Care Team (Late st Contact Info) Description 05/09/2023 Telephone [facility] - Family Medicine [address] [place] [address] Ese Rankin CMA Social History Tobacco Use Types Packs/Day [...] PHQ-2 Answer Date Recorded Total Score 0 03/26/2023 Childcare Answer Date Recorded Childcare Unknown 04/30/2019 [...] encounter Miscellaneous Notes * Telephone Encounter - Ese Rankin CMA - 05/09/2023 11:06 AM EDT Nayla from [facility] called and wanted to know will you follow? * Telephone Encounter - Riley Wallace DO - 05/09/2023 11:06 AM EDT Yes, but what am I following? Was she in the hospital? * Telephone Encounter - Ese Rankin CMA - 05/09/2023 11:06 AM EDT Lm for Nayla to call me back but patient was discharged form the [facility] * Telephone Encounter - Ese Rankin CMA - 05/09/2023 11:[address] Wallace singed all orders so no needed information. documented in this encounter Plan of Treatment Not on file documented as of this encounter Visit Diagnoses Not on filedocumented in this encounter Additional Health Concerns Infection Onset Date Last Indicated Resolved Time COVID-19 Rule-Out 06/28/2023 06/28/2023 06/28/2023 10:24 AM EDT Assessment Noted Time PHQ-9 Depression Total Score: 0 03/26/20 3:53 PM EDT documented as of this encounter Care Teams Customer Service Assistant Relationship Specialty Start Date End Date Riley Wallace DO [address] [place] [address] PCP - General Internal Medicine 10/18/18 documented as of this encounter
--- OUTSIDE RECORDS SUMMARY | 2025-06-03 07:59 | XMS_ITS | Clinical Summary ---
Author Organization [facility] Address [address] [place] [address] Care Team Providers Care Assistant Track Coach Name Role Phone Riley Wallace MD Primary Care Provider [phone] Allergies No known active allergies Medications amLODIPine (Norvasc) 10 MG tablet Take 10 mg by mouth Daily Active metFORMIN, OSM, (Fortamet) 500 MG 24 hr tablet Take 500 mg by mouth in the morning and 500 mg in the evening. Take with meals. Do not crush, chew, or split.. Active sertraline (Zoloft) 100 MG tablet Take 100 mg by mouth in the morning and 100 mg before bedtime. Active atorvastatin (Lipitor) 10 MG tablet Take 10 mg by mouth Daily Active rOPINIRole (Requip) 0.5 MG tablet Take 0.5 mg by mouth in the morning and 0.5 mg in the evening and 0.5 mg before bedtime. Active omeprazole OTC (PriLOSEC OTC) 20 MG EC tablet Take 20 mg by mouth in the morning. Take before meals. Do not crush, chew, or split.. Active montelukast (Singulair) 10 MG tablet Take 10 mg by mouth Active diclofenac (Voltaren) 75 MG EC tablet Take 75 mg by mouth in the morning and 75 mg before bedtime. Do not crush, chew, or split.. Active gabapentin (Neurontin) 400 MG capsule Take 400 mg by mouth in the morning and 400 mg before bedtime. Active oxyCODONE-aceta minophen (Percocet) 7.5-325 MG tablet Take by mouth Active Fexofenadine HCl (CHING PO) Take by mouth Active aspirin 81 MG EC tablet Take 81 mg by mouth Daily Active pregabalin (Lyrica) 25 MG capsuleIndicati ons:Neuropathy Take 1 capsule (25 mg) by mouth in the morning and 1 capsule (25 mg) in the evening and 1 capsule (25 mg) before bedtime. 90 capsule 05/03/2025 Active oxyCODONE (Roxicodone) 5 MG immediate release tabletIndicatio ns:Severe pain Take 1 tablet (5 mg) by mouth every 4 (four) hours if needed for severe pain 180 tablet 05/05/2025 06/04/20 25 Active pregabalin (Lyrica) 50 MG capsuleIndicati ons:Neuropathy Take 1 capsule (50 mg) by mouth in the morning and 1 capsule (50 mg) in the evening and 1 capsule (50 mg) before bedtime. 90 capsule 1 05/05/2025 05/05/20 26 Active oxyCODONE (Roxicodone) 5 MG immediate release tabletIndicatio ns:Severe pain Take 1 tablet (5 mg) by mouth every 6 (six) hours if needed for severe pain 120 tablet 05/03/2025 06/02/20 25 Active Problems No known active problems Encounters Date Type Department Care Team Description 05/25/2025 Abstract [facility] [address] [facility] [address] [place] [id number] Riley Wallace MD 05/05/2025 Telephone [facility] [address] [facility] [address] [place] [address] Geri Dorsey, OVIDIO 05/03/2025 Telephone [facility] [address] [facility] [address] [place] [address] Geri Dorsey, OVIDIO 05/03/2025 Telephone [facility] [address] [facility] [address] [place] [address] Geri Dorsey, DISTRICT [employer] from Last 3 Months Immunizations Immunization Administration Dates Next Due Influenza, High Dose Seasona l, Preservative Free 08/27/2018,09/19/2017,09/08/2016 Influenza, High-dose Seasona l, Quadrivalent, Preservative Free 09/13/2023,09/15/2022 Influenza, Seasonal, Quadriv alent, Adjuvanted 10/05/2021,08/17/2020 Influenza, Unspecified 09/05/2017 Influenza, injectable, MDCK, quadrivalent 2018 Influenza, seasonal, injectable 08/20/2014 Influenza, seasonal, injecta ble, preservative free 08/09/2015 Influenza, trivalent, adjuvanted 10/06/2024 Pneumococcal Conjugate PCV 13 08/25/2015 Pneumococcal Polysaccharide PPSV23 09/14/2008 Tdap 11/26/2015 Family History Medical History Relation Name Comments Heart disease Father Relation Name Status Comments Father Mother Social History Tobacco Use Types Packs/Day Years Used Date Smoking Tobacco: Former Cigarettes Smokeless Tobacco: Never Tobacco Cessation:Counseling Given: No Alcohol Use Standard Drinks/Week Comments Not Currently 0 (1 standard drink = 0.6 oz pur e alcohol) Comments Unknown Sex and Gender Information Value Date Recorded Sex Assigned at Not on file Legal Sex Female 8:13 PM EDT Gender Identity Not on file Sexual Orientation Not on file Last Filed Vital Signs Vital Sign Reading Time Taken Comments Blood Pressure 117/66 07/14/2019 12:00 PM EDT Pulse - - Temperature - - Respiratory Rate - - Oxygen Saturation - - Inhaled Oxygen Concentration - - Weight 107 kg (236 lb) 12/04/2024 3:24 PM EST Height 162.6 cm (5' 4 ) 12/04/2024 3:24 PM EST Body Mass Index 40.51 12/04/2024 3:24 PM EST Plan of Treatment Health Maintenance Due Date Last Done Comments Pneumococcal Vaccine: 65+ Ye ars (3 of 3 - PCV20 or PCV21) 08/25/2020 08/25/2015, 09/14/2008 Influenza Vaccine (#1) 2025 , 09/13/2023, 09/15/2022, Additional history exists Insurance MEDICARE [facility] Care Teams Assistant Track Coach Relationship Specialty Start Date End Date Riley Wallace MD PCP - General Internal Medicine 12/04/24
--- OUTSIDE RECORDS SUMMARY | 2025-06-03 07:59 | XMS_ITS | Encounter Summary ---
Author Organization [employer] [facility] [employer] Address [id number] [address] [place] [address] Care Team Providers Care Industrial Relations Analyst Name Role Phone Riley Wallace Glenys MATA Primary Care Provider [phone] Reason for Visit * Reason Comments Med Refill Encounter Details Date Type Department Care Team (Late st Contact Info) Description 05/23/2023 Refill [facility] - Family Medicine [address] [place] [address] Iliana Crum, [employer] INTERVIEWER [address] [place] [address] Essential hypertension Social History Tobacco Use Types [...] Time PHQ-9 Depression Total Score: 0 03/26/20 23 3:53 PM EDT documented as of this encounter Care Teams Industrial Relations Analyst Relationship Specialty Start Date End Date Riley Wallace DO [facility] [place] [address] PCP - General Internal Medicine 10/18/18 documented as of this encounter
--- OUTSIDE RECORDS SUMMARY | 2025-06-03 07:59 | XMS_ITS | Patient Health Record ---
Author Organization [facility] [place] Address [address] [place] [address] Care Team Providers Care Care Transition Mgr Name Role Phone Riley Wallace DO Primary Care Provider Marcos Madsen Unavailable [phone] Chad Lyle Unavailable [phone] Reason For Referral No Information Medications Medication SIG (Take, Route, Frequency, Duration) Notes Start Date End Date Status Ipratropium-Albuterol 0.5-2.5 (3) MG/3ML INHALE 1 VIAL VIA NEBULIZER 4 TIMES A DAY Inhalation for 8 Days Active metFORMIN HCl 1000 MG Oral for 30 Days Active Montelukast Sodium 10 MG Oral for 30 Days Active busPIRone HCl 10 MG Oral for 30 Days Active Diclofenac Sodium 75 MG Oral for 30 Days Active Fluticasone Propionate 50 MCG/ACT Nasal for 90 Days Active Gabapentin 400 MG TAKE 1 CAPSULE BY [facility] TWICE A DAY Oral for 30 Days Active Omeprazole 20 MG Oral for 30 Days Active Albuterol Sulfate HFA 108 (90 Base) MCG/ACT INHALE 2 PUFFS INTO THE LUNGS EVERY 4 HOURS NEEDED FOR 17 DAYS Inhalation for 25 Days Active oxyCODONE HCl 10 MG 1 tablet Orally tid for 30 days 02/27/2025 Active amLODIPine Besylate 10 MG Oral for 30 Days Active rOPINIRole HCl 0.5 MG Oral for 30 Days Active Atorvastatin Calcium 10 MG TAKE 1 TABLET BY MOUTH EVERY DAY Oral for 90 Days Active Sertraline HCl 100 MG Oral for 30 Days Active Immunizations Vaccine Route Administration Date Status Comme nts Flu, Fluad (77714) 65 yrs an d older, single-dose syringe Unknown 10/06/2024 Administered Pneumococcal (Pneumovax 23) Unknown 09/14/2008 Administ ered SARS-COV-2 (COVID 19 Pfizer 30mcg/0.3mL) Unknown 10/05/2021 Administered Social History Tobacco Use: Social History Observation [...] Problem Status W/U Status Risk Notes Problem 118424667979046 Primary osteoarthritis, right shoulder (M19.011) Active confirmed Problem 266677763 Peripheral vascular disease, unspecified (I73.9) Active confirmed Problem 78135188 Generalized anxiety disorder (F41.1) Active confirmed Problem 15168146 Other chronic pain (G89.29) Active confirmed Problem Chronic respiratory failure (89296598) Chronic respiratory failure with hypoxia (J96.11) Active confirmed Problem 71850694 Constipation, unspecified (K59.00) Active confirmed Problem 088991720021429 Primary osteoarthritis, left shoulder (M19.012) Active confirmed Problem 589416704 Spondylosis without myelopathy or radiculopathy, lumbar region (M47.816) Active confirmed Problem Morbid obesity (201543017) Morbid obesity (E66.01) Active confirmed Problem COPD - Chronic obstructive pulmonary disease (76267440) COPD (chronic obstructive pulmonary disease) (J44.9) Active confirmed Problem Obstructive sleep apnea syndrome (82618465) CYNTHIA (obstructive sleep apnea) (G47.33) Active confirmed Problem Diabetes mellitus type 2 (disorder) (81780393) DM2 (diabetes mellitus, type 2) (E11.9) Active confirmed Problem Restless legs (73266452) RLS (restless legs syndrome) (G25.81) Active confirmed Problem Lung field abnormal (510178694) Abnormal CT scan of lung (R91.8) Active confirmed Problem Muscle weakness (90461031) Generalized muscle weakness (M62.81) Active confirmed Problem Ex-tobacco user (finding) (546145705) History of tobacco abuse (Z87.891) Active confirmed Problem Atherosclerotic heart disease of [place] coronary artery without angina pectoris (994526910047524) Coronary artery calcification seen on CT scan (I25.10) Active confirmed Encounters Encounter Location Date Provider Diagnosis Pulmonary Medicine [facility] [address] [place] [address] 02/17/2025 Chad Lyle [facility] [address] [place] [address] 02/27/2025 Marcos Jeffers [facility] [place] [address] [place] [address] 03/17/2025 Chad Lyle Plan Of Treatment No Information Insurance Providers Payer Name Payer Address Payer Phone Subscriber Number Group Number Insured Name Patient Relationship to Insured Coverage Start Date Coverage End Date MEDICARE [place] [address] [place] [address] [id number] Alysia Pérez Self - patient is the insured 3 [id number] [employer] [address] 8 MEDICARE SUPP CLMS DEPT [place]SY [place] [phone] [id number] Alysia Pérez Self - patient is the insured 3 Medical (General) History Medical History History ICD Code COPD (chronic obstructive pulmonary dise ase) J44.9 CYNTHIA (obstructive sleep apnea) G47.33 RLS (restless legs syndrome) G25.81 DM2 (diabetes mellitus, type 2) E11.9 HTN (hypertension) I10 OA (osteoarthritis) M19.90 HLD (hyperlipidemia) E78.5 GERD (gastroesophageal reflux disease) K 21.9 GEMMA (generalized anxiety disorder) F41.1 Allergic rhinitis J30.9 Chronic respiratory failure with hypoxia J96.11 Coronary artery calcification seen on CT scan I25.10 Generalized muscle weakness M62.81 Macular degeneration H35.30 Compression fracture of L2 lumbar verteb ra S32.020A Venous stasis dermatitis I83.10 Chronic venous insufficiency I87.2 Frequent falls R29.[address] scan of lung R91.8 Morbid obesity E66.01 History of tobacco abuse Z87.891
--- OUTSIDE RECORDS SUMMARY | 2025-06-03 07:59 | XMS_ITS | Encounter Summary ---
Author Organization [facility] Address [id number] [address] [place] [address] Care Team Providers Care Quill Reamer Name Role Phone Riley Wallace Primary Care Provider [phone] Encounter Details Date Type Department Care Team (Late st Contact Info) Description 04/06/2025 Orders Only [facility] - Family Medicine [address] [place] [address] External, Scanning Provider Social History Tobacco Use Types Packs/Day Years [...] on file documented as of this encounter Procedures Procedure Name Priority Date/Time Associated Diagnosis Comments DNR COMFORT CARE (DNRCC) [place] Routine 04/06/2025 12:27 PM EDT documented in this encounter Results * DNR Comfort Care (DNRCC) [place] (04/06/2025 12:27 PM EDT) us Scanning Provider External CODE STATUS ORDERABLE S Final Result MANUALLY TRANSCRIBED RESULTS documented in this encounter Visit Diagnoses Not on filedocumented in this encounter Additional Health Concerns Assessment Noted Time PHQ-9 Depression Total Score: 0 03/12/20 25 4:16 PM EDT documented as of this encounter Care Teams Quill Reamer Relationship Specialty Start Date End Date Riley Wallace DO [address] [place] [id number] PCP - General Internal Medicine 10/18/18 documented as of this encounter
--- OUTSIDE RECORDS SUMMARY | 2025-06-03 07:59 | XMS_ITS | Encounter Summary ---
Author Organization [facility] [facility] Address [id number] [address] [place] [address] Care Team Providers Care Grain Processor Name Role Phone Riley Wallace DO Primary Care Provider [phone] Reason for Visit * Reason Comments Med Refill Encounter Details Date Type Department Care Team (Late st Contact Info) Description 02/28/2023 Refill [facility] - Family Medicine [address] [place] [address] Riley Wallace DO [address] [place] [address] Gastro-esophageal reflux disease without esophagitis Social History Tobacco Use Types Packs/Day Years [...] as of this encounter Visit Diagnoses Diagnosis Gastro-esophageal reflux disease without esophagitis documented in this encounter Additional Health Concerns Infection Onset Date Last Indicated Resolved Time COVID-19 Rule-Out 06/28/2023 06/28/2023 06/28/2023 10:24 AM EDT Assessment Noted Time PHQ-9 Depression Total Score: 0 01/19/20 23 4:26 PM EST documented as of this encounter Care Teams Grain Processor Relationship Specialty Start Date End Date Riley Wallace DO [address] [place] [address] PCP - General Internal Medicine 10/18/18 documented as of this encounter
--- OUTSIDE RECORDS SUMMARY | 2025-06-03 08:00 | XMS_ITS | Encounter Summary ---
Author Organization [employer] tem Address [facility] [id number] [address] [place] [address] Care Team Providers Care Caseworker Intake Name Role Phone Riley Wallace Primary Care Provider [phone] Encounter Details Date Type Department Care Team (Late st Contact Info) Description 05/19/2025 Telephone [facility] Internal [facility] - Family Medicine [address] [place] [phone] Brianna Sheldon CMA Social History Tobacco Use Types Packs/Day Years Used Date Smoking Tobacco: Former Cigarettes 1 20 Smokeless Tobacco: Never Alcohol Use Standard Drinks/Week Comments No 0 (1 standard drink = 0.6 oz pur e alcohol) [facility] Utilities Answer Date Recorded In the past 12 months has e electric, gas, oil, or water company threatened to shut off services in your [...] Telephone Encounter - Brianna Sheldon CMA - 05/19/2025 9:35 AM EDT Sol Jimenes called and states pt is being discharged soon not yet from a longterm facility would you follow?Their number is [phone] * Telephone Encounter - Riley Wallace DO - 05/19/2025 9:35 AM EDT Message noted. Yes I will follow her, but she will need a TCM. * Telephone Encounter - Brianna Sheldon CMA - 05/19/2025 9:35 AM EDT I called and let them know you will follow documented in this encounter Plan of Treatment Not on file documented as of this encounter Goals Goal Patient Goal Type Associated Problems Recent Progress Patient-Stated? Author Skilled Care and then transition to LTC General Yes Jesi Ferraro, RN Note: Evaluation of progress towards goal: Patient has been at [facility] for what she believes to be 1-2 weeks. She states that she is requiring more assistance with ambulation than what can be provided at that level of care. 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 DaughterBridget states they have been discussing this option with [facility]. Ese at [facility] states that they have assisted them to file for Medicaid. documented as of this encounter Visit Diagnoses Not on filedocumented in this encounter Additional Health Concerns Assessment Noted Time PHQ-9 Depression Total Score: 0 04/22/20 25 11:50 AM EDT documented as of this encounter Care Teams Caseworker Intake Relationship Specialty Start Date End Date Riley Wallace DO [address] [place] [id number] PCP - General Internal Medicine 10/18/18 documented as of this encounter
--- OUTSIDE RECORDS SUMMARY | 2025-06-03 08:00 | XMS_ITS | Encounter Summary ---
Author Organization [facility] tem Address [facility] [id number] [address] [place] [address] Care Team Providers Care Vp Director Of Finance Name Role Phone Riley Wallace DO Primary Care Provider [phone] Reason for Referral * Consultation (Routine) - Closed Specialty Diagnoses / Procedures Referred By Contac t Referred To Contact Diagnoses Lymphedema of lower extremity, unspecified laterality Riley Wallace DO [address] [place] [address] Phone: tel: fax: [place] [address] [place] [address] Referral ID Status Reason Start Date Expiration Date Visits Re quested Visits Authorized [id number] Closed 06/21/2023 06/20/2024 2 2 Encounter Details Date Type Department Care Team (Late st Contact Info) Description 06/21/2023 Orders Only [facility] Internal Medicine - Family Medicine [address] [place] [address] Riley Wallace DO [address] [place] [address] Lymphedema of lower extremity, unspecified laterality (Primary Dx) Social History Tobacco Use Types [...] as of this encounter Plan of Treatment Scheduled Referrals Name Type Priority Associated Diagnoses Order Schedule Ambulatory referral to Lymphedema Clinic Outpatient Referral Routine Lymphedema of lower extremity, unspecified laterality 1 Occurrences starting 06/21/2023 until 06/21/2024 documented as of this encounter Visit Diagnoses Diagnosis Lymphedema of lower extremity, unspecified laterality- Primary documented in this encounter Additional Health Concerns Infection Onset Date Last Indicated Resolved Time COVID-19 Rule-Out 06/28/2023 06/28/2023 06/28/2023 10:24 AM EDT Assessment Noted Time PHQ-9 Depression Total Score: 0 05/28/20 23 4:01 PM EDT documented as of this encounter Care Teams Vp Director Of Finance Relationship Specialty Start Date End Date Riley Wallace DO [address] [place] [address] PCP - General Internal Medicine 10/18/18 documented as of this encounter
--- OUTSIDE RECORDS SUMMARY | 2025-06-03 08:00 | XMS_ITS | Encounter Summary ---
Author Organization [facility] Address [facility] [id number] [address] [place] [address] Care Team Providers Care Home Health Specialist Name Role Phone Riley Wallace DO Primary Care Provider [phone] Encounter Details Date Type Department Care Team (Late st Contact Info) Description 09/03/2023 Telephone [facility] Internal Medicine - Family Medicine [address] [place] [address] Riley Wallace DO [address] [place] [address] Social History Tobacco Use Types Packs/Day Years [...] PHQ-2 Answer Date Recorded Total Score 0 07/20/2023 Childcare Answer Date Recorded Childcare Unknown 04/30/2019 Employment Answer Date Recorded Employment Unknown 04/30/2019 Hunger Screening Answer Date Recorded Within the past 12 months we worried whether our food would run out before we got money to buy more. Never True 07/20/2023 Within the past 12 months th e food we bought just didn't last and we didn't have money to get more. Never True 07/20/2023 Purpose - Life Answer Date Recorded Purpose and direction in life Unknown Comments No Sex and Gender Information Value Date Recorded Sex Assigned at Not on file Legal Sex Female 11:30 AM EDT Gender Identity Not on file Sexual Orientation Not on file documented as of this encounter Miscellaneous Notes * Telephone Encounter - No [place] - 09/03/2023 11:18 AM EDT [facility] called to notifiy you that Alysia was discharged from [facility]. She will be[facility] to the [facility] for further care. documented in this encounter Plan of Treatment Not on file documented as of this encounter Visit Diagnoses Not on filedocumented in this encounter Additional Health Concerns Assessment Noted Time PHQ-9 Depression Total Score: 0 07/20/20 23 9:17 AM EDT documented as of this encounter Care Teams Home Health Specialist Relationship Specialty Start Date End Date Riley Wallace DO [address] [place] [address] PCP - General Internal Medicine 10/18/18 documented as of this encounter
--- OUTSIDE RECORDS SUMMARY | 2025-06-03 08:00 | XMS_ITS | Encounter Summary ---
Author Organization [employer] Address [facility] [id number] [address] [place] [address] Care Team Providers Care Technical Sales Specialist Name Role Phone Riley Wallace DO Primary Care Provider [phone] Reason for Visit * Reason Comments Med Refill Encounter Details Date Type Department Care Team (Late st Contact Info) Description 05/31/2025 Refill [facility] - Family Medicine [address] [place] [address] Riley Wallace DO [address] [place] [address] Hyperlipidemia, unspecified hyperlipidemia type Social History Tobacco Use Types Packs/Day Years Used Date Smoking Tobacco: Former Cigarettes 1 20 Smokeless Tobacco: Never Alcohol Use Standard Drinks/Week Comments No 0 (1 standard drink = 0.6 oz pur e alcohol) [facility] Utilities Answer Date Recorded In the past 12 months has [employer], gas, oil, or water [employer] threatened to shut off services in your [...] progress towards goal: Patient has been at [facility] for what she believes to be 1-2 weeks. She states that she is requiring more assistance with ambulation than what can be provided at that level of care. 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 Daughter, Bridget states they have been discussing this option with [facility]. Ese at [facility] states that they have assisted them to file for Medicaid. documented as of this encounter Visit Diagnoses Diagnosis Hyperlipidemia, unspecified hyperlipidemia type documented in this encounter Additional Health Concerns Assessment Noted Time PHQ-9 Depression Total Score: 0 04/22/20 25 11:50 AM EDT documented as of this encounter Care Teams Technical Sales Specialist Relationship Specialty Start Date End Date Riley Wallace DO [address] [place] [address] PCP - General Internal Medicine 10/18/18 documented as of this encounter
--- OUTSIDE RECORDS SUMMARY | 2025-06-03 08:00 | XMS_ITS | Encounter Summary ---
Author Organization [facility] tem Address [facility] [id number] [address] [place] [address] Care Team Providers Care Block Operator Name Role Phone Riley Wallace Primary Care Provider [phone] Encounter Details Date Type Department Care Team (Late st Contact Info) Description 08/30/2023 Orders Only [facility] Internal [facility] - Family Medicine [address] [place] [address] Ref Prov, [place] [address] Social History Tobacco Use Types Packs/Day Years [...] Procedure Name Priority Date/Time Associated Diagnosis Comments DIABETES EYE EXAM Routine 08/30/2023 2:45 PM EDT documented in this encounter Results * HM DIABETES EYE EXAM (08/30/2023 2:45 PM EDT) us Not In System Ref Prov HEALTH MAINTENANCE Final Result MANUALLY TRANSCRIBED RESULTS documented in this encounter Visit Diagnoses Not on filedocumented in this encounter Additional Health Concerns Assessment Noted Time PHQ-9 Depression Total Score: 0 07/20/20 23 9:17 AM EDT documented as of this encounter Care Teams Block Operator Relationship Specialty Start Date End Date Riley Wallace DO [address] [place] [id number] PCP - General Internal Medicine 10/18/18 documented as of this encounter
--- OUTSIDE RECORDS SUMMARY | 2025-06-03 08:00 | XMS_ITS | Encounter Summary ---
Author Organization [employer] tem Address [facility] [place][id number] [address] [place] [address] Care Team Providers Care Negative Turner Apprentice Name Role Phone Riley Wallace Primary Care Provider [phone] Encounter Details Date Type Department Care Team (Late st Contact Info) Description 06/20/2023 Telephone [facility] - Family Medicine [address] [place] [phone] Ese Rankin CMA Social History Tobacco Use [...] Telephone Encounter - Ese Rankin CMA - 06/20/2023 2:11 PM EDT Bridget from [facility] called and wanted to know if an order could be faxed to [facility] to Lida Lizama for patient to be fitted for lymphoedema pressure garments. This order needs to state lymphedema evaluate and treat. Fax this order to [phone] * Telephone Encounter - Riley Wallace DO - 06/20/2023 2:11 PM EDT An order for the [facility] [facility] is in her chart. Please fax to the requested number. documented in this encounter Plan of Treatment Not on file documented as of this encounter Visit Diagnoses Not on filedocumented in this encounter Additional Health Concerns Infection Onset Date Last Indicated Resolved Time COVID-19 Rule-Out 06/28/2023 06/28/2023 06/28/2023 10:24 AM EDT Assessment Noted Time PHQ-9 Depression Total Score: 0 05/28/20 23 4:01 PM EDT documented as of this encounter Care Teams Negative Turner Apprentice Relationship Specialty Start Date End Date Riley Wallace DO [address] [place] [address] PCP - General Internal Medicine 10/18/18 documented as of this encounter
--- OUTSIDE RECORDS SUMMARY | 2025-06-03 08:00 | XMS_ITS | Encounter Summary ---
Author Organization [facility] tem Address [facility] [id number] [address] [place] [address] Care Team Providers Care Metal Off Bearer Name Role Phone Riley Wallace DO Primary Care Provider [phone] Encounter Details Date Type Department Care Team (Late st Contact Info) Description 01/08/2024 Orders Only [facility] - Family Medicine [address] [place] [address] Riley Wallace DO [address] [place] [address] Social History Tobacco Use Types Packs/Day Years [...] PHQ-2 Answer Date Recorded Total Score 0 01/07/2024 Childcare Answer Date Recorded Childcare Unknown 04/30/2019 Employment Answer Date Recorded Employment Unknown 04/30/2019 Hunger Screening Answer Date Recorded Within the past 12 months we worried whether our food would run out before we got money to buy more. Never True 01/07/2024 Within the past 12 months th e food we bought just didn't last and we didn't have money to get more. Never True 01/07/2024 Purpose - Life Answer Date Recorded Purpose [...] Noted Time PHQ-9 Depression Total Score: 0 01/07/20 24 4:28 PM EST documented as of this encounter Care Teams Metal Off Bearer Relationship Specialty Start Date End Date Riley Wallace DO [address] [place] [address] PCP - General Internal Medicine 10/18/18 documented as of this encounter
--- OUTSIDE RECORDS SUMMARY | 2025-06-03 08:00 | XMS_ITS | Encounter Summary ---
Author Organization [facility] tem Address [facility] [id number] [address] [place] [address] Care Team Providers Care Olericulturist Name Role Phone Riley Wallace DO Primary Care Provider [phone] Encounter Details Date Type Department Care Team (Late st Contact Info) Description 09/06/2023 Orders Only [facility] - Family Medicine [address] [place] [address] Riley Wallace DO [address] [place] [address] Encounter for monitoring diuretic therapy (Primary Dx) Social History Tobacco Use Types [...] on file documented as of this encounter Results * (ABNORMAL) Magnesium (09/13/2023 12:17 PM EDT) Magnesium 1.7(L) 1.8 - 2.6 mg/dL 09/13/2023 3:00 PM EDT [facility] Blood (PLASMA) 09/13/2023 12 :17 PM EDT 09/13/2023 12:18 PM EDT us Riley Wallace DO LAB BLOOD ORDERABLES Final Resul t [facility] [address], [address] [place] [address] * (ABNORMAL) Basic Metabolic Panel (09/13/2023 12:17 PM EDT) Sodium 137 134 - 146 mmol/L 09/13/2023 3:00 PM EDT [facility] Potassium, Bld 5.4(H) 3.5 - 5.0 mmol/L 09/13/2023 3:00 PM EDT [facility] Chloride 104 98 - 109 mmol/L 09/13/2023 3:00 PM EDT [facility] CO2 22 22 - 32 mmol/L 09/13/2023 3:00 PM EDT [facility] Anion gap 11 5 - 15 mmol/L 09/13/2023 3:00 PM EDT [facility] BUN 19 5 - 27 mg/dL 09/13/2023 3:00 PM EDT [facility] Creatinine 1.07(H) 0.40 - 1.00 mg/dL 09/13/2023 3:00 PM EDT [facility] Comment:METHOD TRACEABLE TO IDMS STANDARD Glucose 128(H) 65 - 99 mg/dL 09/13/2023 3:00 PM EDT [facility] Calcium 9.6 8.5 - 10.5 mg/dL 09/13/2023 3:00 PM EDT [facility] eGFR (CKD-EPI)non-ra ce dependent 53(L) >59 ml/min/1.7 3sq.m 09/13/2023 3:00 PM EDT [facility] Comment: Reported eGFR is based on the CKD-EPI 2020 equation that does not use a race coefficient. PLASMA 09/13/2023 12:1 7 PM EDT 09/13/2023 12:18 PM EDT Riley Wallace DO LAB BLOOD ORDERABLES Final Resul t [facility] [address] [place] [address] documented in this encounter Visit Diagnoses Diagnosis Encounter for monitoring diuretic therapy- Primary documented in this encounter Additional Health Concerns Assessment Noted Time PHQ-9 Depression Total Score: 0 07/20/20 23 9:17 AM EDT documented as of this encounter Care Teams Olericulturist Relationship Specialty Start Date End Date Riley Wallace DO [address] [place] [address] PCP - General Internal Medicine 10/18/18 documented as of this encounter
--- OUTSIDE RECORDS SUMMARY | 2025-06-03 08:00 | XMS_ITS | Encounter Summary ---
Author Organization [employer] Address [facility] [place][id number] [address] [place] [address] Care Team Providers Care Bed Laborer Name Role Phone Riley Wallace Primary Care Provider [phone] Reason for Visit * Reason Onset Date Comments Transition Of Care 07/04/2023 Encounter Details Date Type Department Care Team (Late st Contact Info) Description 07/04/2023 Telephone [facility] Internal [facility] - Family Medicine [address] [place] [phone] Bridget Feldman RN Transition Of Care Social History Tobacco Use Types Packs/Day Years [...] encounter Miscellaneous Notes * Telephone Encounter - Bridget Feldman RN - 07/04/2023 10:51 AM EDT Images from the original note were not included. Transition of Care Additional Questions/Concerns Requiring PCP Follow-Up: -Patient would prefer to call next week to make a hospital follow up appointment with her PCP. This documentation is being used for Transition of Care purposes: Yes Goal: Patient will demonstrate a safe transition from hospital to home. Diagnosis on Discharge: COPD with acute exacerbation Discharge Specialty: Pulmonology Name of Discharging Facility: [facility] Date of Facility Discharge: 06.28.23-07.03.23 Date of Interactive Contact and Name of Apple Turner: 07.04.23 1059 Spoke with the patient. Medication Review Completed: No We discussed the changes that were made to her medications at discharge. She reports that her daughter sets up her medications for her. She declines to review her complete medication list. She has noquestions about her medications at this time. Follow Up Appointments with Providers: Primary: Riley Wallace Jr, DO TBD Specialty: Pain Management 07.04.23 230 pm Review of Pending Lab/Diagnostic Tests and Plan for Completion: -PFT's have been ordered. Assessment and Support of Treatment Regimen Adherence and Medication Management: -Patient reports that she is doing pretty good since returning home. -Patient denies any chest pain, worsening shortness of breath, fever or chills. -Patient continues to have an occasional dry cough and chronic left hip pain. -Patient is now on 2 liters of oxygen around the clock. We discussed oxygen safety. She reports that her pulse ox has been staying above 92%. -Patients daughter assists her with her medication and treatment regime. Education Provided by [facility] to Support Self-Management, Independent Living and ADLs: -Patient lives alone. -Patient denies the need for any additional DME. -Medication education was provided. -Encouraged to call the office with any questions, concerns, new or worsening symptoms. -Instructed to call 911 with any sudden shortness of breath or chest pain. -Explained TCM services that are available. Explained that [facility] will be available to provide assistance for a minimum of 30 days post discharge. Jacy Coburn's contact information was provided and encouraged patient to call for assistance as needed. Communication with Home Health Agencies and Other Services Utilized/Needed by the Patient: -Oxygen and supplies are being provided by [facility]. -SN, PT, OT and QUALITY ASSURANCE COACH services are to be provided by [facility]. Line Construction Superintendent spoke with Tonia at [facility] who reports that they have the paperwork and will be working on getting the patient scheduled for a resumption of care. documented in this encounter Plan of Treatment Not on file documented as of this encounter Visit Diagnoses Not on filedocumented in this encounter Additional Health Concerns Assessment Noted Time PHQ-9 Depression Total Score: 0 05/28/20 23 4:01 PM EDT documented as of this encounter Care Teams Bed Laborer Relationship Specialty Start Date End Date Riley Wallace DO [address] [place] [address] PCP - General Internal Medicine 10/18/18 documented as of this encounter
--- OUTSIDE RECORDS SUMMARY | 2025-06-03 08:00 | XMS_ITS | Encounter Summary ---
Author Organization [facility] Address [facility] [place][id number] [address] [place] [address] Care Team Providers Care Health Information Manager Name Role Phone Riley Wallace Primary Care Provider [phone] Encounter Details Date Type Department Care Team (Late st Contact Info) Description 07/10/2023 Telephone [facility] Internal [facility] - Family Medicine [address] [place] [phone] Nellie Cooper CMA Social History Tobacco Use [...] Telephone Encounter - Nellie Cooper CMA - 07/10/2023 8:39 AM EDT FYI -- Maxime form home health PT called, he is setting up once weekly visits with pt for the next 9 weeks. documented in this encounter Plan of Treatment Not on file documented as of this encounter Visit Diagnoses Not on filedocumented in this encounter Additional Health Concerns Assessment Noted Time PHQ-9 Depression Total Score: 0 05/28/20 4:01 PM EDT documented as of this encounter Care Teams Health Information Manager Relationship Specialty Start Date End Date Riley Wallace DO [address] [place] [address] PCP - General Internal Medicine 10/18/18 documented as of this encounter
--- OUTSIDE RECORDS SUMMARY | 2025-06-03 08:00 | XMS_ITS | Clinical Summary ---
Author Organization [employer] Address [id number] [address] 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, without long-term current use of insulin, macular edema presence unspecified [place] use as directed 1 each 024 Active Additional Information Patient not taking.Reported on 04/22/2025 montelukast (SINGULAIR) 10 mg tabletIndications:A llergic rhinitis, unspecified TAKE 1 TABLET BY MOUTH EVERY DAY 90 tablet 1 024 Active sertraline (ZOLOFT) 100 mg tabletIndications:O ther specified anxiety disorders TAKE 2 TABLETS BY MOUTH EVERY DAY 180 tablet 1 024 Active ipratropium-albuter oL (DUONEB) 0.5 mg-3 mg(2.5 mg base)/3 mL nebulizerIndication s:COPD with acute exacerbation ([facility] Inhale 3 mL by nebulization 4 (four) times a day as needed for wheezing. 025 Active metFORMIN (GLUCOPHAGE) 500 mg tabletIndications:T ype 2 diabetes mellitus without complications ([facility] TAKE 2 TABLETS BY MOUTH EVERY DAY 180 tablet 1 Active rOPINIRole (REQUIP) 0.5 mg tabletIndications:R estless legs syndrome TAKE 1 TABLET BY MOUTH EVERY DAY IN THE EVENING 90 tablet 1 Active aspirin 81 mg Take 1 tablet (81 mg total) by mouth in the morning. Active acetaminophen (TYLENOL EXTRA STRENGTH) 500 mg tablet Take 1 tablet (500 mg total) by mouth every 6 (six) hours as needed for pain or headaches. 30 tablet Active loratadine (CLARITIN) 10 mg tablet Take 1 tablet (10 mg total) by mouth daily as needed for allergies. Active lidocaine (LIDODERM) 5 %Indications:Lumbar radiculopathy Place 1 patch on the skin in the morning. Remove & Discard patch within 12 hours or as directed by MD. 30 patch 1 Active nystatin (MYCOSTATIN) powder Apply topically 2 (two) times a day as needed (dermatitis). 15 g Active celecoxib (CeleBREX) 100 mg capsule Take 1 capsule (100 mg total) by mouth in the morning and 1 capsule (100 mg total) before bedtime. Active fluticasone-umeclid in-vilanter (TRELEGY ELLIPTA) 200-62.5-25 mcg blister with device Inhale 1 puff in the morning. Active amLODIPine (NORVASC) 10 mg tabletIndications:E ssential hypertension Take 0.5 tablets (5 mg total) by mouth in the morning. 90 tablet 1 025 Active fluticasone propionate (FLONASE) 50 mcg/actuation nasal sprayIndications:Ch ronic obstructive pulmonary disease, unspecified COPD type (CMS-HCC) SPRAY 1 SPRAY INTO EACH NOSTRIL IN THE MORNING 48 mL 1 025 Active atorvastatin (LIPITOR) 10 mg tabletIndications:H yperlipidemia, unspecified hyperlipidemia type TAKE 1 TABLET BY MOUTH EVERY DAY 90 tablet 025 Active fluticasone propionate (FLONASE) 50 mcg/actuation nasal sprayIndications:Ch ronic obstructive pulmonary disease, unspecified COPD type (CMS-HCC) SPRAY 1 SPRAY INTO EACH NOSTRIL IN THE MORNING 48 mL 1 024 2024 Discontinued atorvastatin (LIPITOR) 10 mg tabletIndications:H yperlipidemia, unspecified hyperlipidemia type TAKE 1 TABLET BY MOUTH EVERY DAY 90 tablet 025 2024 Discontinued pregabalin (LYRICA) 25 mg capsuleIndications: Lumbar radiculopathy Take 1 capsule (25 mg total) by mouth 3 (three) times a day for 10 days. 025 2024 Active Problems Problem Noted Date Diagnosed Date Osteoarthritis of bilateral glenohumeral joints 04/24/2025 Acute pain of right knee 04/24/2025 Acute exacerbation of COPD with asthma Weakness generalized 04/22/2025 Bilateral exudative age-rela svitlana macular degeneration, unspecified stage 03/12/2025 Sacroiliitis 10/06/2024 PVD (peripheral vascular disease) 10/06/2024 Mild persistent asthma without complication 11/2022 Closed compression fracture of L2 lumbar vertebra, initial encounter 07/01/2023 COPD with acute exacerbation 06/28/2023 Hyperlipidemia 09/11/2022 Glaucoma 09/11/2022 Gastroesophageal reflux disease 09/11/2022 Osteoarthritis 09/11/2022 Class 3 severe obesity due t o excess calories with serious comorbidity and body mass index (BMI) of 40.0 to 44.9 in adult 01/22/2020 Restless legs 02/19/2019 Essential hypertension 10/17/2018 Obstructive sleep apnea syndrome 10/17/2018 Osteopenia 11/14/2016 Acquired spondylolisthesis of lumbosacral region 09/15/2015 Lumbar radiculopathy 05/31/2015 Type 2 diabetes mellitus wit h moderate nonproliferative retinopathy, without long-term current use of insulin, macular edema presence unspecified, unspecified laterality Encounters Date Type Department Care Team Description 05/31/2025 Refill [facility] - Family Medicine [address] [place] [phone] Riley Wallace DO Hyperlipidemia, unspecified hyperlipidemia type 05/20/2025 Telephone [facility] [address] [place] [address] Brianna Sheldon CMA 05/19/2025 Telephone [facility] [address] [place] [address] Marely Sheldonetelvina, [facility] 05/19/2025 Telephone [facility] - [facility] [address] [place] [address] Pito Brianna, [facility] 05/11/2025 Refill [facility] [address] [place] [address] Riley Wallace DO Chronic obstructive pulmonary disease, unspecified COPD type ([facility] 05/08/2025 9:40 AM EDT - 05/08/2025 11:59 PM EDT Hospital Encounter [facility] - Radiology [address] [place] [address] Pain of left hip joint Discharge Disposition: Home 05/08/2025 Travel 04/26/2025 Refill [facility] [address] [place] [address] Riley Wallace DO Allergic rhinitis, unspecified; Other specified anxiety disorders 04/22/2025 2:09 PM EDT - 04/25/2025 2:31 PM EDT Hospital Encounter [facility] - Acute Care [address] [place] [address] Riley Wallace DO Osteoarthritis of bilateral glenohumeral joints (Primary Dx); Lumbar radiculopathy; Essential hypertension; Primary osteoarthritis of both shoulders; Weakness generalized; Type 2 diabetes mellitus with moderate nonproliferative retinopathy, without long-term current use of insulin, macular edema presence unspecified, unspecified laterality ([facility] COPD with acute exacerbation ([facility] Discharge Disposition: Assisted Facility-Medicare Cert 04/22/2025 12:30 PM EDT Office Visit [facility] [address] [place] [address] Riley Wallace DO Generalized weakness (Primary Dx); Primary osteoarthritis of both shoulders; COPD with acute exacerbation ([facility]); Dependent edema 04/22/2025 Travel 04/18/2025 Refill [facility] - Family Medicine [address] [place] [address] Riley Wallace, Essential hypertension 04/16/2025 Telephone [facility] - [facility] [address] [place] [address] Riley Wallace, 04/16/2025 Telephone [facility] [address] [place] [address] Tiffani Lau, [facility] 04/10/2025 Refill [facility] - [facility] Medicine [address] [place] [address] Riley Wallace DO Restless legs syndrome 04/06/2025 Orders Only [facility] [address] [place] [address] External, Scanning Provider 04/06/2025 Telephone [facility] [address] [place] [address] Tiffani Lau, [facility] 03/26/2025 Refill [facility] - [facility] [address] [place] [address] Riley Wallace, Type 2 diabetes mellitus without complications ([facility] Gastro-esophageal reflux disease without esophagitis 03/12/2025 4:15 PM EDT Office Visit [facility] [address] [place] [address] Riley Wallace, Primary osteoarthritis of both shoulders (Primary Dx); Sacroiliitis; 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, without long-term current use of insulin, macular edema presence unspecified [facility] Bilateral exudative age-related macular degeneration, unspecified stage ([facility] Chronic obstructive pulmonary disease, unspecified COPD type ([facility]); PVD (peripheral vascular disease); Class 3 severe obesity due to excess calories with serious comorbidity and body mass index (BMI) of 50.0 to 59.9 in adult ([facility] COPD with acute exacerbation ([facility] 03/12/2025 Travel 03/11/2025 Refill [facility] - [facility] Medicine [address] [facility] [place] [address] Riley Wallace, Unspecified osteoarthritis, unspecified site from Last 3 Months Immunizations Immunization Administration Dates Next Due Influenza (IM) Preservative Free 08/09/2015 Influenza High Dose Preservative Free IM 018,09/19/2017,09/08/2016 Influenza Vaccine, Quadrivalent, Adjuvanted 09/19,08/17/2020 Influenza, High-dose, Quadrivalent 09/13/2023, Influenza, Im Trivalent Preservative 08/20/2014 Influenza, Injectable, MDCK, Quadrivalent 2018 Influenza, Trivalent, Adjuvanted 10/06/2024 Influenza, Unspecified 09/05/2017 Pneumococcal Conjugate 13-Valent 08/25/2015 Pneumococcal Polysaccharide 09/14/2008 Tdap 11/26/2015 Family History Medical History Relation Name Comments Pancreatic cancer Brother Heart disease Father Relation Name Status Comments Brother Father Mother Social History Tobacco Use Types Packs/Day Years Used Date Smoking Tobacco: Former Cigarettes 1 20 Smokeless Tobacco: Never Tobacco Cessation:Counseling Given: Not Answered Alcohol Use Standard Drinks/Week Comments No 0 (1 standard drink = 0.6 oz pur e alcohol) [facility] Utilities Answer Date Recorded In the past 12 months has [employer], gas, oil, or water [employer] threatened to shut off services in your [...] Sign Reading Time Taken Comments Blood Pressure 150/70 04/25/2025 7:42 AM EDT Pulse 74 04/25/2025 7:55 AM EDT Temperature 36.6 C (97.8 F) 04/25/2025 7:42 AM EDT Respiratory Rate 18 04/25/2025 7:55 AM EDT Oxygen Saturation 96% 04/25/2025 7:55 AM EDT Inhaled Oxygen Concentration - - Weight 115 kg (253 lb 8 oz) 04/23/2025 4:38 AM E DT Height 157.5 cm (5' 2.01 ) 04/22/2025 3:00 PM ED T Body Mass Index 46.35 04/22/2025 3:00 PM EDT Plan of Treatment Health Maintenance Due Date Last Done Comments Medicare Annual Wellness Visit 1945 Zoster (Shingles) Vaccine (1 of 2) 1993 COVID-19 Vaccine (4 - 2023-2 5 season) 2024 10/05/2021, 03/17/2021, 02/17/2021 Influenza Vaccine 07/20/2025 10/06/2024, , 09/15/2022, Additional history exists DTaP,Tdap and Td Vaccines (2 - Td or Tdap) 11/26/2025 11/26/2015 Tobacco Screening 03/12/2026 03/12/2025 Depression Screening 04/22/2026 04/22/2025 Fall Risk Screening 04/22/2026 04/22/2025 Goals Goal Patient Goal Type Associated Problems [...] knows she will need to go into residential care but would like to try rehab again somewhere else before LTC. DaughterBridget states they have been discussing this option with [facility]. Ese at [facility] states that they have assisted them to file for Medicaid. Medical Devices Not on file Procedures Procedure Name Priority Date/Time Associated Diagnosis Comments XR HIP LT 2-3 VIEWS W OR WO PELVIS STAT 05/08/2025 10:07 AM EDT Pain of left hip joint BEDSIDE GLUCOSE Routine 04/25/2025 1:44 PM EDT BEDSIDE GLUCOSE Routine 04/25/2025 7:50 AM EDT BEDSIDE GLUCOSE Routine 04/24/2025 9:52 PM EDT BEDSIDE GLUCOSE Routine 04/24/2025 4:31 PM EDT BEDSIDE GLUCOSE Routine 04/24/2025 11:51 AM EDT BEDSIDE GLUCOSE Routine 04/24/2025 7:51 AM EDT BEDSIDE GLUCOSE Routine 04/23/2025 4:[address] KNEE RT WO CONT STAT 04/23/2025 12 :48 PM EDT XR SHOULDER RT MIN 2 VWS Routine 04/23/2025 12:46 PM EDT BEDSIDE GLUCOSE Routine 04/23/2025 12:08 PM EDT URINALYSIS Routine 04/23/2025 4:18 AM EDT BEDSIDE GLUCOSE Routine 04/22/2025 9:46 PM EDT XR CHEST 1 VW Routine 04/22/2025 5:09 PM EDT XR KNEE RT 1 OR 2 VWS Routine 04/22/2025 5:08 PM EDT BEDSIDE GLUCOSE Routine 04/22/2025 3:50 PM EDT TSH WITH REFLEX Routine 04/22/2025 2:38 PM EDT CBC (NO DIFF) Routine 04/22/2025 2:38 PM EDT B-TYPE NATRIURETIC PEPTIDE STAT 04/22/2025 2:38 PM EDT MAGNESIUM Routine 04/22/2025 2:38 PM EDT PHOSPHORUS Routine 04/22/2025 2:38 PM EDT HEMOGLOBIN A1C Routine 04/22/2025 2:38 PM EDT COMPREHENSIVE METABOLIC PANEL Routine 04/22/2025 2:38 PM EDT EXTRA TUBES BLUE TOP Routine 04/22/2025 2:37 PM EDT EXTRA TUBES Routine 04/22/2025 2:37 PM EDT PULSE OXIMETRY, SPOT Routine 04/22/2025 2:26 PM EDT DNR COMFORT CARE (DNRCC) [place] Routine 04/06/2025 12:27 PM EDT from Last 3 Months Results * X-ray hip left 2-3 views with or without pelvis (05/08/2025 10:07 AM EDT) Anatomical Region Laterality Modality Lower Extremities, MSK, Hip Left Comp uted Radiography 05/08/2025 10:1 7 AM EDT Narrative 05/08/2025 10:21 AM EDT HISTORY: An 79-year-old female with a history of the chronic left hip pain and pain radiating to the back. No history of injury. TECHNIQUE: AP view of pelvis with left hip: 3 views COMPARISON: Comparison is made with left hip radiographs of 01/16/2025. FINDINGS: There is no evidence of fracture, dislocation or acute bony pathology. No bony destruction is seen. There are severe degenerative changes in the lower lumbar spine with levoscoliosis. Both sacroiliac joints are intact. Both is a pubic rami are intact. Both hip joints are intact. No bony destruction is identified. IMPRESSION: * Both hip joints are intact without evidence of fracture, bony destruction or acute bony pathology. * Severe degenerative arthritis in the lower lumbar spine and levoscoliosis. Finalized by Reji Fierro MD on 05/08/2025 10:21 AM Procedure Note Reji Fierro MD - 05/08/2025 HISTORY: An 79-year-old female with a history of the chronic left hip painand pain radiating to the back. No history of injury. TECHNIQUE: AP view of pelvis with left hip: 3 views COMPARISON: Comparison is made with left hip radiographs of 01/16/2025. FINDINGS: There is no evidence of fracture, dislocation or acute bonypathology. No bony destruction is seen. There are severe degenerative changes in the lower lumbar spine withlevoscoliosis. Both sacroiliac joints are intact. Both is a pubic rami are intact. Both hip joints are intact. No bony destruction is identified. IMPRESSION: * Both hip joints are intact without evidence of fracture, bonydestruction or acute bony pathology. * Severe degenerative arthritis in the lower lumbar spine andlevoscoliosis. Finalized by Reji Fierro MD on 05/08/2025 10:21 AM Dawson Richards NEONATAL NURSE PRACTITIONER-NEWSPAPER PUBLISHER IMG DIAGNOSTIC IMAGING O RDERABLES Final Result * (ABNORMAL) Bedside Glucose *Place/Obtain serum glucose if >500 per glucometer. (04/25/2025 1:44 PM EDT) Only the most recent of10 resultswithin the time period is included. Bedside Glucose (POC) 274(H) 65 - 99 mg/dL 04/25/2025 1:49 PM EDT [facility] Blood specimen (specimen) 04/25/2025 1:44 PM EDT 04/25/2025 1:49 PM EDT Riley Wallace DO POINT OF CARE TEST ORDERABLES Fi nal Result [facility] [address] [place] [address], [place] * CT knee right without contrast (04/23/2025 12:48 PM EDT) Anatomical Region Laterality Modality MSK, Lower Extremities, Knee, Patella, MSK Cover a Right Computed Tomography 04/23/2025 1:34 PM EDT Narrative 04/23/2025 1:[address] KNEE RT WO CONT CLINICAL INFORMATION: r/o infective process; right knee pain COMPARISON: 04/22/2025. PROCEDURE: Routine CT of the right knee was obtained without contrast. Sagittal and coronal reformats were obtained from the axial data. Automated exposure control was utilized. All CT scans at this facility use dose modulation, iterative reconstruction, and/or weight based dosing when appropriate to reduce radiation dose to as low as reasonably achievable. FINDINGS: Large knee joint effusion. Edema is present in the soft tissues, cellulitis not excluded. Heterotopic ossification. No periprosthetic fracture. No definite cortical destruction. IMPRESSION: * Right total knee arthroplasty with large joint effusion. Consider joint aspiration if there is concern for infection. No periprosthetic lucencies or fracture. Finalized by Rodrigo Blanco MD on 04/23/2025 1:35 PM Procedure Note Rodrigo Blanco MD - 04/23/2025 CT KNEE RT WO CONT CLINICAL INFORMATION: r/o infective process; right knee pain COMPARISON: 04/22/2025. PROCEDURE: Routine CT of the right knee was obtained without contrast. Sagittal andcoronal reformats were obtained from the axial data. Automated exposurecontrol was utilized. All CT scans at this facility use dose modulation,iterative reconstruction, and/or weight based dosing when appropriate toreduce radiation dose to as low as reasonably achievable. FINDINGS: Large knee joint effusion. Edema is present in the soft tissues,cellulitis not excluded. Heterotopic ossification. No periprostheticfracture. No definite cortical destruction. IMPRESSION: * Right total knee arthroplasty with large joint effusion. Consider jointaspiration if there is concern for infection. No periprosthetic lucenciesor fracture. Finalized by Rodrigo Blanco MD on 04/23/2025 1:35 PM Dawson Fonsecavalentinawilder NEONATAL NURSE PRACTITIONER-NEWSPAPER PUBLISHER IMG CT ORDERABLES Final Result * X-ray shoulder right minimum 2 views (04/23/2025 12:46 PM EDT) Anatomical Region Laterality Modality MSK, Upper Extremities, Shoulder Right Computed Radiography 04/23/2025 1:03 PM EDT Narrative 04/23/2025 1:05 PM EDT History: Pain Study: Right Shoulder Three view study. Comparison: 01/16/2025 Impression: Chronic destructive changes about the glenohumeral joint space are again appreciated. No evidence of acute fracture or dislocation. Complex joint effusion remains. Overall, stable exam. Finalized by Indu Currie MD on 04/23/2025 1:05 PM Procedure Note Indu Currie MD - 04/23/2025 History: Pain Study: Right Shoulder Three view study. Comparison: 01/16/2025 Impression: Chronic destructive changes about the glenohumeral joint space are againappreciated. No evidence of acute fracture or dislocation. Complex jointeffusion remains. Overall, stable exam. Finalized by Indu Currie MD on 04/23/2025 1:05 PM Dawson Richards NEONATAL NURSE PRACTITIONER-NEWSPAPER PUBLISHER IMG DIAGNOSTIC IMAGING O RDERABLES Final Result * (ABNORMAL) Urinalysis (04/23/2025 4:18 AM EDT) COLOR Yellow Yellow, Colorless 04/23/2025 6:04 AM EDT [facility] TURBIDITY Clear Clear 04/23/2025 6:04 AM EDT [facility] SPECIFIC GRAVITY <=1.005 1.003 - 1.035 04/23/2025 6:04 AM EDT [facility] NITRITE Positive(A) Negative 04/23/2025 6:04 AM EDT [facility] PH,URINE 6.0 5.0 - 8.5 04/23/2025 6:04 AM EDT [facility] LEUKOCYTE ESTERASE Moderate(A) Negative 04/23/2025 6:04 AM EDT [facility] PROTEIN Negative Negative 04/23/2025 6:04 AM EDT [facility] KETONES (URINE) Negative Negative 6:04 AM EDT [facility] UROBILINOGEN 0.2 eu/dL 0.2 eu/dL, 1.0 eu/dL 04/23/2025 6:04 AM EDT [facility] BILIRUBIN (URINE) Negative Negative 04/23/2025 6:04 AM EDT [facility] BLOOD/HGB Moderate(A) Negative 04/23/2025 6:04 AM EDT [facility] R.B.CELLS 1 0 - 5 04/23/2025 6:04 AM EDT [facility] SQUAMOUS EPITHELIUM 2 0 - 5 04/23/2025 6:04 AM EDT [facility] W.B.CELLS 2 0 - 5 04/23/2025 6:04 AM EDT [facility] GLUCOSE (URINE) Negative Negative, 250 mg/dL 04/23/2025 6:04 AM EDT [facility] Urine 04/23/2025 4:18 AM EDT 04/23/2025 5:30 AM EDT us Riley Wallace DO URINE ORDERABLES Final Result [facility] [address] [place] [address], [place] * X-ray chest 1 view (04/22/2025 5:09 PM EDT) Anatomical Region Laterality Modality Body, Chest N/A Computed Radiogr aphy 04/23/2025 4:41 AM EDT Narrative 04/23/2025 4:42 AM EDT History: Acute exacerbation COPD Exam/Technique: Single AP view of the chest was obtained Comparison: Chest x-ray 06/28/2023 Findings: Cardiac size stable. There is mild vascular prominence likely due to low lung volume. There is no focal areas of airspace disease, pleural effusion or pneumothorax. IMPRESSION: Unremarkable chest x-ray except for mild prominence of the vascular tree likely due to low lung volume. Finalized by Federica Cole MD on 04/23/2025 4:42 AM Procedure Note Federica Cole MD - 04/23/2025 History: Acute exacerbation COPD Exam/Technique: Single AP view of the chest was obtained Comparison: Chest x-ray 06/28/2023 Findings: Cardiac size stable. There is mild vascular prominence likely due to lowlung volume. There is no focal areas of airspace disease, pleural effusionor pneumothorax. IMPRESSION: Unremarkable chest x-ray except for mild prominence of the vascular treelikely due to low lung volume. Finalized by Federica Cole MD on 04/23/2025 4:42 AM Riley Wallace DO IMG DIAGNOSTIC IMAGING ORDERABLE S Final Result * X-ray knee right 1 or 2 views (04/22/2025 5:08 PM EDT) Anatomical Region Laterality Modality Lower Extremities, MSK, Knee Right Com puted Radiography 04/23/2025 8:39 AM EDT Narrative 04/23/2025 8:40 AM EDT XR KNEE RT 1 OR 2 VWS IMPRESSION: Clinical Information: injury. Knee replacement. Comparison: None. * Positioning degrades assessment. Right total knee arthroplasty present with heterotopic ossification. Some soft tissue swelling is noted. There is a knee joint effusion. Vascular calcifications. Osteopenia. Finalized by Rodrigo Blanco MD on 04/23/2025 8:40 AM Procedure Note Rodrigo Blanco MD - 04/23/2025 XR KNEE RT 1 OR 2 VWS IMPRESSION: Clinical Information: injury. Knee replacement. Comparison: None. * Positioning degrades assessment. Right total knee arthroplasty presentwith heterotopic ossification. Some soft tissue swelling is noted. Thereis a knee joint effusion. Vascular calcifications. Osteopenia. Finalized by Rodrigo Blanco MD on 04/23/2025 8:40 AM Riley Wallace DO [facility] DIAGNOSTIC IMAGING ORDERABLE S Final Result * TSH with Reflex (04/22/2025 2:38 PM EDT) TSH 1.34 0.49 - 4.67 uIU/mL 04/22/2025 3:17 PM EDT [facility] Blood Venous blood / Unknown 04/22/2025 2:38 PM EDT 04/22/2025 2:41 PM EDT Riley Wallace DO LAB BLOOD ORDERABLES Final Resul t [address] [place] [address], [place] * (ABNORMAL) CBC without diff (04/22/2025 2:38 PM EDT) WBC 10.3 4 - 11 x10E9/L 04/22/2025 2:49 PM EDT [facility] RBC Count 3.97 3.8 - 5.2 X10E12/L 04/22/2025 2:49 PM EDT [facility] Hemoglobin 11.2(L) 11.7 - 15.5 g/dL 04/22/2025 2:49 PM EDT [facility] Hematocrit 34.2(L) 35 - 47 % 04/22/2025 2:49 PM EDT [facility] MCV 86 80 - 100 fL 04/22/2025 2:49 PM EDT [facility] MCH 28.3 27 - 34 pg 04/22/2025 2:49 PM EDT [facility] MCHC 32.8 32 - 36 g/dL 04/22/2025 2:49 PM EDT [facility] RDW 16.5(H) 11.5 - 15 % 04/22/2025 2:49 PM EDT [facility] Platelet Count 350 150 - 450 X10E9/L 04/22/2025 2:49 PM EDT [facility] MPV 7.6 7 - 12 fL 04/22/2025 2:49 PM EDT [facility] Blood Venous blood / Unknown 04/22/2025 2:38 PM EDT 04/22/2025 2:41 PM EDT us Riley Wallace DO LAB BLOOD ORDERABLES Final Resul t [address] [place] [address], [place] * Phosphorus (04/22/2025 2:38 PM EDT) PHOSPHORUS 3.2 2.4 - 4.9 mg/dL 04/22/2025 3:01 PM EDT [facility] Blood Venous blood / Unknown 04/22/2025 2:38 PM EDT 04/22/2025 2:41 PM EDT us Riley Wallace DO LAB BLOOD ORDERABLES Final Resul t Performing Organization Address City/[facility] Co de Phone Number [address] [place] [address], [place] * B-type natriuretic peptide (04/22/2025 2:38 PM EDT) BNP 36 <=100 pg/mL 04/22/2025 3:19 PM EDT [facility] Blood Venous blood / Unknown 04/22/2025 2:38 PM EDT 04/22/2025 2:41 PM EDT us Riley Wallace DO LAB BLOOD ORDERABLES Final Resul t Performing Organization Address [facility] Co de Phone Number [address] [place] [address], [place] * (ABNORMAL) Magnesium (04/22/2025 2:38 PM EDT) MAGNESIUM 1.6(L) 1.8 - 2.6 mg/dL 04/22/2025 3:01 PM EDT [facility] Blood Venous blood / Unknown 04/22/2025 2:38 PM EDT 04/22/2025 2:41 PM EDT us Riley Wallace DO LAB BLOOD ORDERABLES Final Resul t Performing Organization Address City/[facility] Co de Phone Number [address] [place] [address], [place] * (ABNORMAL) Hemoglobin A1c (04/22/2025 2:38 PM EDT) HEMOGLOBIN A1C 6.5(H) 4.4 - 5.6 % 04/23/2025 6:01 AM EDT [facility] Comment: ADA Guidelines Result HgbA1c Normal : less than 5.7 % Prediabetes : 5.7 % to 6.4 % Diabetes : > 6.4 % Use with caution in patients with abnormal hemoglobin variants as the half-life of red blood cells and in vivo glycation rates are affected. EST. AVERAGE GLUCOSE 140 mg/dL 04/23/2025 6:01 AM EDT [facility] Blood Venous blood / Unknown 04/22/2025 2:38 PM EDT 04/22/2025 2:41 PM EDT Riley Wallace DO LAB BLOOD ORDERABLES Final Resul t [facility] [address] [place] [address], [place] [phone] * (ABNORMAL) Comprehensive metabolic panel (04/22/2025 2:38 PM EDT) Pathologist [facility] SODIUM 139 134 - 146 mmol/L 04/22/2025 3:01 PM EDT [facility] POTASSIUM 3.9 3.5 - 5.0 mmol/L 04/22/2025 3:01 PM EDT [facility] CHLORIDE 106 98 - 109 mmol/L 04/22/2025 3:01 PM EDT [facility] CARBON DIOXIDE 26 22 - 32 mmol/L 04/22/2025 3:01 PM EDT [facility] ANION GAP 7 5 - 15 mmol/L 04/22/2025 3:01 PM EDT [facility] BLOOD UREA NITROGEN 20 5 - 27 mg/dL 04/22/2025 3:01 PM EDT [facility] CREATININE 0.61 0.40 - 1.00 mg/dL 04/22/2025 3:01 PM EDT [facility] Comment:METHOD TRACEABLE TO IDMS STANDARD GLUCOSE 117(H) 65 - 99 mg/dL 04/22/2025 3:01 PM EDT [facility] CALCIUM 9.1 8.5 - 10.5 mg/dL 04/22/2025 3:01 PM EDT [facility] TOTAL PROTEIN 6.7 6.0 - 8.0 g/dL 04/22/2025 3:01 PM EDT [facility] ALBUMIN 3.5 3.2 - 5.3 g/dL 04/22/2025 3:01 PM EDT [facility] ALKALINE PHOSPHATASE 95 39 - 130 U/L 04/22/2025 3:01 PM EDT [facility] AST 21 <=41 U/L 04/22/2025 3:01 PM EDT [facility] ALT 12 <=31 U/L 04/22/2025 3:01 PM EDT [facility] BILIRUBIN,TOTAL 0.3 0.3 - 1.2 mg/dL 04/22/2025 3:01 PM EDT [facility] EGFR Non-Race Dependent 90 >=60 ml/min/1.7 3sq.m 04/22/2025 3:01 PM EDT [facility] Comment: eGFR not reported due to non-numeric value for Creatinine. Reported eGFR is based on the CKD-EPI 2020 equation that does not use a race coefficient. Blood Venous blood / Unknown 04/22/2025 2:38 PM EDT 04/22/2025 2:41 PM EDT us Riley Wallace DO LAB BLOOD ORDERABLES Final Resul t [facility] [address] [place] [address], [place] * Light Blue Top (04/22/2025 2:37 PM EDT) Extra Tube Auto Resulted 04/22/2025 4:01 PM EDT [facility] Blood Venous blood / Unknown 04/22/2025 2:37 PM EDT 04/22/2025 2:41 PM EDT us Riley Wallace DO LAB BLOOD ORDERABLES Final Resul t Performing Organization Address City/[facility]/ZIP Co de Phone Number [facility] [address] [place] [address], [place] * DNR Comfort Care (DNRCC) [place] (04/06/2025 12:27 PM EDT) us Scanning Provider External CODE STATUS ORDERABLE S Final Result MANUALLY TRANSCRIBED RESULTS from Last 3 Months Insurance MEDICARE [facility] [place] [phone] Advance Directives Documents on File Type Date Recorded Patient Racing Board Marker Expl anation DNR Physician Order 04/06/2025 12:27 PM DN R 04/06/25 DNR Physician Order 07/18/2023 2:22 PM * DNR Comfort Care Arrest (DNR-CCA) [place] (Latest Code Status on File) Date Activated Date Inactivated Comments 04/22/2025 2:26 PM 04/25/2025 4:36 PM * DNR Comfort Care (DNRCC) [place] Date Activated Date Inactivated Comments 04/06/2025 12:27 PM 04/22/2025 2:09 PM This order w as created through External Result Entry * DNR Comfort Care Arrest (DNR-CCA) [place] Date Activated Date Inactivated Comments 07/02/2023 10:25 AM 07/03/2023 6:56 PM Care Teams Embossograph Operator Relationship Specialty Start Date End Date Riley Wallace DO [address] [place] [address] PCP - General Internal Medicine 10/18/18
--- OUTSIDE RECORDS SUMMARY | 2025-06-03 08:00 | XMS_ITS | Encounter Summary ---
Author Organization [employer] Sys tem Address [id number] [address] [place] [address] Care Team Providers Care Tar Heater Name Role Phone Riley Wallace Primary Care Provider [phone] Encounter Details Date Type Department Care Team (Late st Contact Info) Description 05/20/2025 Telephone [facility] Internal Medicine - Family Medicine [address] [place] [phone] Brianna Sheldon CMA Social History Tobacco Use Types Packs/Day Years Used Date Smoking Tobacco: Former Cigarettes 1 20 Smokeless Tobacco: Never Alcohol Use Standard Drinks/Week Comments No 0 (1 standard drink = 0.6 oz pur e alcohol) [facility] Utilities Answer Date Recorded In the [...] Telephone Encounter - Brianna Sheldon CMA - 05/20/2025 10:28 AM EDT Sol leung called again wondering if you would follow pt home care as she is being discharge froma snf facility to home. Their number is [phone] documented in this encounter Plan of Treatment Not on file documented as of this encounter Goals Goal Patient Goal Type Associated Problems Recent Progress Patient-Stated? Author Skilled Care and then transition to LTC General Yes Jesi Ferraro, RN Note: Evaluation of progress towards goal: Patient has been at [facility] for what she believes to be 1-2 weeks. She states that she is requiring more assistance with ambulation than what can be provided at that level of care. 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 DaughterBridget states they have been discussing this option with [facility]. Ese at [facility] states that they have assisted them to file for Medicaid. documented as of this encounter Visit Diagnoses Not on filedocumented in this encounter Additional Health Concerns Assessment Noted Time PHQ-9 Depression Total Score: 0 04/22/20 25 11:50 AM EDT documented as of this encounter Care Teams Tar Heater Relationship Specialty Start Date End Date Riley Wallace DO [address] [place] [id number] PCP - General Internal Medicine 10/18/18 documented as of this encounter
--- OUTSIDE RECORDS SUMMARY | 2025-06-03 08:00 | XMS_ITS | Encounter Summary ---
Author Organization [employer] Sys tem Address [id number] [address] [place] [address] Care Team Providers Care Machine Room Engineer Name Role Phone Riley Wallace Primary Care Provider [phone] Encounter Details Date Type Department Care Team (Late st Contact Info) Description 08/22/2023 Telephone [facility] Internal Medicine - Family Medicine [address] [place] [phone] Nellie Cooper CMA Social History Tobacco Use [...] Telephone Encounter - Nellie Cooper CMA - 08/22/2023 1:27 PM EDT yC from [facility] called in, she has been seeing pt once a week in home, and was contacting us with some concerns In regards to the pt's legs. She said the pt has been elevating legs, applying cream. She had 2 blisters that broke open, and now are scabbing over. Pt had an evaluation at [place] [facility] (note in chart under media) She still needs fitted for compression stockingsand they think pt needs an antibiotic prior to starting the OT, as patients legs, the redness is starting to come back. It seems to be worse on the L side. Pt has no complaints of pain. Cy statedshe is asymptomatic currently. Can you send in an antibiotic to [facility] in [place], or will pt need appt ? I was unable to find any opening in the next week for pt. Please advise. * Telephone Encounter - Riley Wallace DO - 08/22/2023 1:27 PM EDT She needs an appointment with me this week. Perhaps Sunday morning. I can do a video visit, with the help of . I don't know if antibiotics are needed * Telephone Encounter - Nellie Cooper CMA - 08/22/2023 1:27 PM EDT Called and left pt message. Called Cy. She said when the pt went to [facility] for the fitting of her compression stockings, she was signed up for a program while she was there. So she will be starting on Sunday and seeing them 2x a week. This means she will be getting discharged from home health, as the lymphadema clinic counts as outpatient OT. Still trying to figure out how to get pt seen. Dr Wallace suggested Home health going in tomorrow anddoing a viideo visit before she is officially discharged. Per Precious, pt's daughter is to call back and see if we can fit her in anywhere. * Telephone Encounter - Ese Rankin CMA - 08/22/2023 1:27 PM EDT I am still waiting for call from daughter but I did speak with Yc and she did state they will not be going back in. I explained we will figure something out. She did take pictures and wanted to know if this would help? documented in this encounter Plan of Treatment Not on file documented as of this encounter Visit Diagnoses Not on filedocumented in this encounter Additional Health Concerns Assessment Noted Time PHQ-9 Depression Total Score: 0 07/20/20 23 9:17 AM EDT documented as of this encounter Care Teams Machine Room Engineer Relationship Specialty Start Date End Date Riley Wallace DO [address] [place] [address] PCP - General Internal Medicine 10/18/18 documented as of this encounter
--- OUTSIDE RECORDS SUMMARY | 2025-06-03 08:00 | XMS_ITS | Encounter Summary ---
Author Organization [facility] tem Address [id number] [address] [place] [address] Care Team Providers Care Bulk Tank Car Unloader Name Role Phone Riley Wallace DO Primary Care Provider [phone] Reason for Referral * Consultation (Routine) - Closed Specialty Diagnoses / Procedures Referred By Contadrianna t Referred To Contact Dermatology Diagnoses Spongiotic dermatitis Riley Wallace DO [address] [place] [address] Phone: tel: fax: Clara Mancia MD [address] [facility] [address] [place] [address] Phone: tel: fax: Referral ID Status Reason Start Date Expiration Date V isits Requested Visits Authorized [id number] Closed Specialty Services Required 03/29/2023 03/28/2024 4 4 Encounter Details Date Type Department Care Team (Late st Contact Info) Description 03/29/2023 Orders Only [facility] Internal Medicine - Family Medicine [address] [place] [phone] Riley Wallace DO [address] [place] [address] Spongiotic dermatitis (Primary Dx) Social History Tobacco Use Types [...] Associated Diagnoses Order Schedule Ambulatory referral to Dermatology Outpatient Referral Routine Spongiotic dermatitis 1 Occurrences starting 03/29/2023 until 03/29/2024 documented as of this encounter Visit Diagnoses Diagnosis Spongiotic dermatitis- Primary Contact dermatitis and other eczema, due to unspecified cause documented in this encounter Additional Health Concerns Infection Onset Date Last Indicated Resolved Time COVID-19 Rule-Out 06/28/2023 06/28/2023 06/28/2023 10:24 AM EDT Assessment Noted Time PHQ-9 Depression Total Score: 0 03/26/20 23 3:53 PM EDT documented as of this encounter Care Teams Bulk Tank Car Unloader Relationship Specialty Start Date End Date Riley Wallace DO [address] [place] [address] PCP - General Internal Medicine 10/18/18 documented as of this encounter
--- OUTSIDE RECORDS SUMMARY | 2025-06-03 08:00 | XMS_ITS | Encounter Summary ---
Author Organization [employer] Address [facility] [id number] [address] [place] [address] Care Team Providers Care Product Safety Tester Name Role Phone Riley Wlalace Primary Care Provider [phone] Encounter Details Date Type Department Care Team (Late st Contact Info) Description 04/16/2025 Telephone [facility] - Family Medicine [address] [place] [phone] Tiffani Lau CMA Social History Tobacco Use [...] Telephone Encounter - Tiffani Lau CMA - 04/16/2025 11:57 AM EDT Uyen, from [facility] called in about pt's decline. Pt has fallen several times, and was wanting to go into a nursing facility in [place]. She is a 3 person assist. [facility]enes is going to bump up her plan of care to 3 days a week. The nurse, Uyen, wants a return call regarding Alysia. Pt is in a assisted living facility at this time. Thank you. * Telephone Encounter - Riley Wallace DO - 04/16/2025 11:57 AM EDT Message noted. What is her phone number to contact Uyen? * Telephone Encounter - Tiffani Lau CMA - 04/16/2025 11:57 AM EDT Uyen's phone number is [phone]. * Telephone Encounter - Riley Wallace DO - 04/16/2025 11:57 AM EDT Message noted. I tried to call Uyen by phone, but was only able to connect to her voice mail. I left a message supporting the patient admission to [facility], but that is really the patient and family decision to do so. I can assist with any needed paperwork regarding her medical status. documented in this encounter Plan of Treatment Not on file documented as of this encounter Visit Diagnoses Not on filedocumented in this encounter Additional Health Concerns Assessment Noted Time PHQ-9 Depression Total Score: 0 03/12/20 25 4:16 PM EDT documented as of this encounter Care Teams Product Safety Tester Relationship Specialty Start Date End Date Riley Wallace DO [address] [place] [address] PCP - General Internal Medicine 10/18/18 documented as of this encounter
--- OUTSIDE RECORDS SUMMARY | 2025-06-03 08:00 | XMS_ITS | Encounter Summary ---
Author Organization [facility] Sys tem Address [id number] [address] [place] [address] Care Team Providers Care Enrollment Nurse Name Role Phone Riley Wallace DO Primary Care Provider [phone] Encounter Details Date Type Department Care Team (Late st Contact Info) Description 09/16/2023 Orders Only [facility] - Family Medicine [address] [place] [phone] Riley Wallace DO [address] [place] [address] Hypomagnesemia (Primary Dx) Social History Tobacco Use Types [...] as of this encounter Visit Diagnoses Diagnosis Hypomagnesemia- Primary Disorders of magnesium metabolism documented in this encounter Additional Health Concerns Assessment Noted Time PHQ-9 Depression Total Score: 0 07/20/20 23 9:17 AM EDT documented as of this encounter Care Teams Enrollment Nurse Relationship Specialty Start Date End Date Riley Wallace DO [address] [place] [address] PCP - General Internal Medicine 10/18/18 documented as of this encounter
--- OUTSIDE RECORDS SUMMARY | 2025-06-03 08:00 | XMS_ITS | Encounter Summary ---
Author Organization [employer] Sys tem Address [facility] [id number] [address] [place] [address] Care Team Providers Care Turntable Man Name Role Phone Riley Wallace Primary Care Provider [phone] Encounter Details Date Type Department Care Team (Late st Contact Info) Description 06/27/2023 Telephone [facility] - Family Medicine [address] [place] [phone] Nellie Cooper CMA Social History Tobacco Use [...] on file documented as of this encounter Functional Status documented as of this encounter Miscellaneous Notes * Telephone Encounter - Nellie Cooper CMA - 06/27/2023 2:28 PM EDT yC from [facility] called and said she saw pt yesterday in the home, and pt has a small scabbed over area and blister on her left lower leg, from running into a plastic bin in her home. She wrapped it with gauze but wanted to know what to do, would like verbal order on wound care and dressings? Pt also has a sight cough still present and is bringing up brown phlegm. They are asking if pt needs additional meds sent in. Please advise. Callback [phone]. * Telephone Encounter - Riley Wallace DO - 06/27/2023 2:28 PM EDT Message noted. Patient admitted to hospital documented in this encounter Plan of Treatment Not on file documented as of this encounter Visit Diagnoses Not on filedocumented in this encounter Additional Health Concerns Infection Onset Date Last Indicated Resolved Time COVID-19 Rule-Out 06/28/2023 06/28/2023 06/28/2023 10:24 AM EDT Assessment Noted Time PHQ-9 Depression Total Score: 0 05/28/20 23 4:01 PM EDT documented as of this encounter Care Teams Turntable Man Relationship Specialty Start Date End Date Riley Wallace DO [address] [place] [address] PCP - General Internal Medicine 10/18/18 documented as of this encounter
--- OUTSIDE RECORDS SUMMARY | 2025-06-03 08:00 | XMS_ITS | Encounter Summary ---
Author Organization [employer] Address [id number] [address] [place] [address] Care Team Providers Care Engraver Tender Name Role Phone Riley Wallace Primary Care Provider [phone] Reason for Visit * Reason Onset Date Comments Med Refill 09/17/2023 Encounter Details Date Type Department Care Team (Late st Contact Info) Description 09/17/2023 Refill [facility] - Family Medicine [address] [place] [address] Babita Wilder MA Venous stasis Social History Tobacco Use Types Packs/Day Years [...] as of this encounter Visit Diagnoses Diagnosis Venous stasis Unspecified venous (peripheral) insufficiency documented in this encounter Additional Health Concerns Assessment Noted Time PHQ-9 Depression Total Score: 0 07/20/20 23 9:17 AM EDT documented as of this encounter Care Teams Engraver Tender Relationship Specialty Start Date End Date Riley Wallace DO [address] [place] [address] PCP - General Internal Medicine 10/18/18 documented as of this encounter
--- OUTSIDE RECORDS SUMMARY | 2025-06-03 08:00 | XMS_ITS | Encounter Summary ---
Author Organization [employer] tem Address [id number] [address] [place] [address] Care Team Providers Care Clerical Car Checker Name Role Phone Riley Wallace Primary Care Provider [phone] Reason for Visit * Reason Onset Date Comments Med Refill 01/14/2024 Encounter Details Date Type Department Care Team (Late st Contact Info) Description 01/14/2024 Telephone [facility] - Family Medicine [address] [place] [phone] Karlos, Rashida, EDIPHONE OPERATOR Med Refill Social History Tobacco Use Types Packs/Day Years [...] encounter Miscellaneous Notes * Telephone Encounter - Rashida Everett CMA - 01/14/2024 5:19 PM EST Pt called stated she need her Rx filled she is out . She didn't state which ones though , I did call her back left vm to cb and let us know which ones she needs refilled * Telephone Encounter - Riley Wallace DO - 01/14/2024 5:19 PM EST Message noted. Rx filled documented in this encounter Plan of Treatment Not on file documented as of this encounter Visit Diagnoses Not on filedocumented in this encounter Additional Health Concerns Assessment Noted Time PHQ-9 Depression Total Score: 0 01/07/20 24 4:28 PM EST documented as of this encounter Care Teams Clerical Car Checker Relationship Specialty Start Date End Date Riley Wallace DO [address] [place] [address] PCP - General Internal Medicine 10/18/18 documented as of this encounter
--- OUTSIDE RECORDS SUMMARY | 2025-06-03 08:00 | XMS_ITS | Encounter Summary ---
Author Organization [employer] Address [facility] [id number] [address] [place] [address] Care Team Providers Care Two Way Radio Installer Name Role Phone Riley Wallace Primary Care Provider [phone] Encounter Details Date Type Department Care Team (Late st Contact Info) Description 05/19/2025 Telephone [facility] - Family Medicine [address] [place] [phone] Brianna Sheldon CMA Social History Tobacco Use Types Packs/Day Years Used Date Smoking Tobacco: Former Cigarettes 1 20 Smokeless Tobacco: Never Alcohol Use Standard Drinks/Week Comments No 0 (1 standard drink = 0.6 oz pur e alcohol) [facility] Utilities Answer Date Recorded In [...] progress towards goal: Patient has been at [facility] for what she believes to be 1-2 weeks. She states that she is requiring more assistance with ambulation than what can be provided at that level of care. Patient states she knows she will need to go into [facility] care but would like to try rehab again somewhere else before LTC. DaughterBridget states they have been discussing this option with [facility]. Ese at [facility] states that they have assisted them to file for Medicaid. documented as of this encounter Visit Diagnoses Not on filedocumented in this encounter Additional Health Concerns Assessment Noted Time PHQ-9 Depression Total Score: 0 04/22/20 25 11:50 AM EDT documented as of this encounter Care Teams Two Way Radio Installer Relationship Specialty Start Date End Date Riley Wallace DO [address] [place] [address] PCP - General Internal Medicine 10/18/18 documented as of this encounter
--- OUTSIDE RECORDS SUMMARY | 2025-06-03 08:00 | XMS_ITS | Encounter Summary ---
Author Organization [facility] Sys tem Address [id number] [address] [place] [address] Care Team Providers Care Executive Receptionist Name Role Phone Riley Wallace DO Primary Care Provider [phone] Encounter Details Date Type Department Care Team (Late st Contact Info) Description 08/07/2023 Orders Only [facility] - Family Medicine [address] [place] [address] Riley Wallace DO [address] [place] [address] Mild persistent asthma without complication (Primary Dx) Social History Tobacco Use Types [...] as of this encounter Visit Diagnoses Diagnosis Mild persistent asthma without complication- Primary documented in this encounter Additional Health Concerns Assessment Noted Time PHQ-9 Depression Total Score: 0 07/20/20 23 9:17 AM EDT documented as of this encounter Care Teams Executive Receptionist Relationship Specialty Start Date End Date Riley Wallace DO [address] [place] [address] PCP - General Internal Medicine 10/18/18 documented as of this encounter
--- OUTSIDE RECORDS SUMMARY | 2025-06-03 08:00 | XMS_ITS | Encounter Summary ---
Author Organization [employer] Address [id number] [address] [place] [address] Care Team Providers Care Photographic Process Worker Name Role Phone Riley Wallace DO Primary Care Provider [phone] Reason for Visit * Reason Comments Med Refill Encounter Details Date Type Department Care Team ([facility] st Contact Info) Description 08/18/2023 Refill [facility] - Family Medicine [address] [place] [address] Riley Wallace DO [address] [place] [address] Chronic obstructive pulmonary disease, unspecified COPD type ([facility]); Hyperlipidemia, unspecified hyperlipidemia type; Allergic rhinitis, unspecified; Gastro-esophageal reflux disease without esophagitis; Unspecified osteoarthritis, unspecified site; Bronchitis with bronchospasm Social History Tobacco Use [...] as of this encounter Visit Diagnoses Diagnosis Chronic obstructive pulmonary disease, unspecified COPD type ([facility]) Hyperlipidemia, unspecified hyperlipidemia type Allergic rhinitis, unspecified Gastro-esophageal reflux disease without esophagitis Unspecified osteoarthritis, unspecified site Bronchitis with bronchospasm Acute bronchitis documented in this encounter Additional Health Concerns Assessment Noted Time PHQ-9 Depression Total Score: 0 07/20/20 23 9:17 AM EDT documented as of this encounter Care Teams Photographic Process Worker Relationship Specialty Start Date End Date Riley Wallace DO [address] [place] [address] PCP - General Internal Medicine 10/18/18 documented as of this encounter
--- OUTSIDE RECORDS SUMMARY | 2025-06-03 08:00 | XMS_ITS | Encounter Summary ---
Author Organization [email or web address] Address [id number] [address] [place] [address] Care Team Providers Care Tax Advisor Name Role Phone Riley Wallace DO Primary Care Provider [phone] Reason for Visit * Reason Comments Med Refill Encounter Details Date Type Department Care Team (Late st Contact Info) Description 03/01/2023 Refill [facility] Internal Medicine - Family Medicine [address] [place] [address] Riley Wallace DO [address] [place] [address] Unspecified osteoarthritis, unspecified site Social History Tobacco [...] encounter Miscellaneous Notes * Telephone Encounter - Lillie Delgadillo - 03/01/2023 1:01 AM EDT Phone rings busy * Telephone Encounter - Lillie Delgadillo - 03/01/2023 1:01 AM EDT LM on VM documented in this encounter Plan of Treatment [...] documented as of this encounter Care Teams Tax Advisor Relationship Specialty Start Date End Date Riley Wallace DO [address] [place] [address] PCP - General Internal Medicine 10/18/18 documented as of this encounter
--- OUTSIDE RECORDS SUMMARY | 2025-06-03 08:00 | XMS_ITS | Encounter Summary ---
Author Organization [email or web address] Address [id number] [address] [place] [address] Care Team Providers Care Used Car Make Ready Worker Name Role Phone Riley Wallace DO Primary Care Provider [phone] Reason for Visit * Reason Comments Med Refill Encounter Details Date Type Department Care Team (Late st Contact Info) Description 12/17/2023 Refill [facility] Medicine - Family Medicine [address] [place] [address] Riley Wallace DO [address] [place] [address] Essential (primary) hypertension; Dependent edema Social History Tobacco Use Types Packs/Day Years [...] * Telephone Encounter - Lillie Delgadillo - 12/17/2023 12:18 AM EST LM on documented in this encounter Plan of Treatment Not on file documented as of this encounter Visit Diagnoses Diagnosis Essential (primary) hypertension Unspecified essential hypertension Dependent edema Edema documented in this encounter Additional Health Concerns Assessment Noted Time PHQ-9 Depression Total Score: 0 07/20/20 23 9:17 AM EDT documented as of this encounter Care Teams Used Car Make Ready Worker Relationship Specialty Start Date End Date Riley Wallace DO [address] [place] [address] PCP - General Internal Medicine 10/18/18 documented as of this encounter
--- NOTE | 2025-06-03 08:30 | MR_ITS ---
[place] [id number] Patient Name: ED RODGERS MRN: [id number] date: 1945 Sex: F Assigned Patient Location: MRI Current Patient Location: MRI Accession/Order Number: [id number] Exam Date: 06/03/2025 17:48 Report Date: 06/03/2025 17:54 At the request of: NON-STAFF PHYSICIAN Procedure: MR hip LT wo con MR hip LT wo con 06/03/2025 10:09 AM SIGNS AND SYMPTOMS: Chronic left hip pain PROTOCOL: Multiplanar multisequence MR images of the left hip without contrast COMPARISON: 04/06/2023 FINDINGS: Alignment: Normal Femoroacetabular impingement anatomy: None. Dysplasia: None.. Fluid: No joint effusion. Labrum: Grossly intact. 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 Capsule/ligaments: Grossly intact Muscles/tendons/entheses: Flexors: Normal. Extensors: Normal. Abductors: Normal. Adductors: Normal. Rotators: Normal. Hamstrings: Normal. Bones (other than subarticular marrow): Edema is noted in the left sacroiliac joint suspicious for sacroiliitis. Vessels: Normal. Nerves: Visualized left sciatic and femoral nerves appear normal. Soft tissues: Normal. Viscera: Visualized pelvic structures appear normal. No lymphadenopathy by size criteria. No free fluid in the pelvis. 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 The left hip is otherwise structurally intact. Edema is noted in the left sacroiliac joints suggesting sacroiliitis. Impression dictated by: Maxime Nielsen M.D. 06/03/2025 5:54 PM Dictation Location: [place] [address] Electronically authenticated by: [id number] Y Date: 06/03/2025 17:54
== END 2025-06-03 07:57 | disposition home or self-care (01) ==
LOC: MRI 07:57
PROVIDERS: PCP Internal Medicine
DX: M25.552 Pain in left hip (principal); M94.252 Chondromalacia, left hip
CPT/HCPCS: 73721

== ENCOUNTER 2025-06-03 08:24 | Outpatient (OUT) | payer MEDICARE, OTHER, SELFPAY ==
--- NOTE | 2025-06-03 | XR_ITS ---
The [place] [id number] Patient Name: ED RODGERS MRN: [id number] date: 1945 Sex: F Assigned Patient Location: MRI Current Patient Location: MRI Accession/Order Number: [id number] Exam Date: 06/03/2025 08:55 Report Date: 06/03/2025 09:01 At the request of: NAVEEN OSCAR Procedure: XR lumbar spine min 4V LUMBAR SPINE WITH FLEXION-EXTENSION VIEWS -4 views: CLINICAL HISTORY: Chronic pain across the lower back radiating to left leg where there is numbness. M96.1 COMPARISON: 04/06/2023 AP as well as lateral views in neutral, flexion and extension were obtained. There is osteopenia. Moderate levoscoliotic curvature is again noted. No acute compression fractures are noted. There is slight retrolisthesis of L2 on L3 and L3 on L4. There is minimal anterolisthesis of L4 and L5 and mild of L5 on S1. The L2-3 spondylolisthesis is less evident with extension. There is multilevel disc space narrowing. Endplate spurring and facet hypertrophy are also present. The SI joints are intact. There is atherosclerotic plaque at the aorta and iliac arteries. XR/XR lumbar spine min 4V IMPRESSION: OSTEOPENIA, SCOLIOSIS AND DEGENERATIVE CHANGES SIMILAR TO THE COMPARISON Impression dictated by: Kamilah Ariza M.D. 06/03/2025 9:01 AM Dictation Location: [place] [address] Electronically authenticated by: [id number] Y Date: 06/03/2025 09:01
--- NOTE | 2025-06-03 08:31 | MR_ITS ---
[address] [address] Patient Name: ED RODGERS MRN: [id number] date: 1945 Sex: F Assigned Patient Location: MRI Current Patient Location: Accession/Order Number: [id number] Exam Date: 06/04/2025 08:19 Report Date: 06/04/2025 08:42 At the request of: NAVEEN OSCAR Procedure: MR lumbar spine wo con MRI of the lumbar spine performed without contrast INDICATION: Postlaminectomy syndrome, chronic lumbar pain radiating into right and left hips COMPARISON: X-rays lumbar spine 06/03/2025 FINDINGS: Moderate levo curvature. Lumbar vertebral body heights maintained. Moderate severe multilevel intervertebral space narrowing greatest L2-L3. The posterior changes status post right hemilaminotomy L4-5 and L5-S1. Multilevel endplate marrow degenerative changes greatest L1-S1. Conus medullaris terminates normally at T12-L1. Multilevel facet arthropathy. There is fatty atrophy involving the dorsal paraspinal musculature greatest in the right. Sclerotic appearance sacroiliac joints noted. T12-L1: Broad-based disc bulge with moderate facet arthropathy. Mild right moderate left neural from narrowing. L1-2 circumferential disc bulge with bilateral facet arthropathy. Moderate canal narrowing. Moderate severe right and moderate left neural from narrowing. L2-3: Circumferential disc bulge with moderate facet arthropathy. Moderate to severe right neural foraminal narrowing and mevb-[id number] left neural from narrowing identified. Dnzb-[id number] central stenosis. L3-4: Circumferential disc bulge. Endplate osteophytosis extending to both neural foramina regions causing severe right and moderate severe left neural foraminal narrowing. There is moderate to severe central canal stenosis. Crowding both subarticular zones. L4-5: Circumferential disc bulge. Moderate to severe central canal stenosis. Moderate severe right and severe left foraminal narrowing and facet arthropathy identified. L5-S1: Circumferential disc bulge with endplate osteophytosis there is at least moderate central canal narrowing. Extending to both foraminal regions. Bilateral facet arthropathy. Severe bilateral neural foraminal narrowing identified. 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 Moderate severe central canal stenosis L3-L5. Severe left neural foraminal narrowing L4-S1 Impression dictated by: Danis Dennis M.D. 06/04/2025 8:42 AM Dictation Location: [place] [address] Electronically authenticated by: [id number] Y Date: 06/04/2025 08:42
== END 2025-06-03 08:25 | disposition home or self-care (01) ==
LOC: MRI 08:25
PROVIDERS: PCP Internal Medicine; Visit Provider Anesthesiology
DX: M96.1 Postlaminectomy syndrome, not elsewhere classified (principal); M51.369 Other intervertebral disc degeneration, lumbar region without mention of lumbar back pain or lower extremity pain; M48.062 Spinal stenosis, lumbar region with neurogenic claudication; M85.88 Other specified disorders of bone density and structure, other site; M25.552 Pain in left hip
CPT/HCPCS: 72110; 72148; 73721